=== PATIENT | female | born 1935 | race Two or more races ===

== ENCOUNTER → 2017-12-08 | Outpatient (CLI) | payer OTHER ==
[~2017-12-08] MED LIST: ASPI-231 PO; ASPI81CH43 PO; CEPH-37 PO; CLOP75TA28 PO; DIP25C PO; FOLI1TAB6 OR; GABA250S2 PO; GABA300C10 OR; HYDR-4683 GT; LEVO125T7 OR; LOSA50TA6 OR; METH2.5T3 OR; NITR0.4S31 SL; OMEG300C7 OR; PRED5PAK8 OR; PRENTAB40 OR; RIVA10TA PO; ROSU5TAB5 PO; SACC250C PO
== END | disposition home or self-care (01) ==
LOC: LAB 12:00
PROVIDERS: ATTEND Internal Medicine
DX: B26.89 Other mumps complications (principal); I10 Essential (primary) hypertension; E11.9 Type 2 diabetes mellitus without complications
CPT/HCPCS: 36415; 82565; 84520

== ENCOUNTER → 2017-12-11 | Outpatient (CLI) | payer OTHER ==
[2017-12-11 13:42] LABS: Basophils # (auto) 0.1 uL; Basophils % (auto) 1.2 % (0.0-2.0); Eosinophils # (auto) 0.2 uL; Eosinophils % (auto) 2.5 % (0.0-7.0); Hematocrit 37.9 % (36.0-46.0); Hemoglobin 12.6 g/dL (12.2-16.2); Lymphocytes # (auto) 1.9 uL; Lymphocytes % (auto) 25.9 % (10.0-50.0); Mean Corpuscular Hgb Conc. 33.3 g/dL (32.0-36.0); Mean Corpuscular Volume 99.2 fL (80.0-100.0); Monocytes # (auto) 0.5 uL; Monocytes % (auto) 7.1 % (0.0-12.0); Neutrophils # (auto) 4.7 uL; Neutrophils % (auto) 63.3 % (37.0-80.0); Nucleated Red Blood Cells % 0.1 %; Platelet Count (auto) 150 10^3/uL (140-450); Red Blood Cells 3.82 10^6/uL (4.0-5.20); Red Cell Distribution Width 14.7 % (11.8-14.3); White Blood Cell 7.4 10^3/uL (4.4-10.8)
[2017-12-11 14:36] LABS: Albumin 3.2 g/dL (3.4-5.0); BUN/Creatinine Ratio 23.6; Bilirubin, Total 0.4 mg/dL (0.2-1.0); Calcium 8.8 mg/dL (8.5-10.1); Total Protein 6.3 g/dL (6.4-8.2); Uric Acid 5.6 mg/dL (2.6-6.0)
== END | disposition home or self-care (01) ==
LOC: LAB 13:23
PROVIDERS: ATTEND Internal Medicine
DX: I12.9 Hypertensive chronic kidney disease with stage 1 through stage 4 chronic kidney disease, or unspecified chronic kidney disease (principal); E11.22 Type 2 diabetes mellitus with diabetic chronic kidney disease; N18.2 Chronic kidney disease, stage 2 (mild)
CPT/HCPCS: 36415; 80053; 83036; 83970; 84550; 85025

== ENCOUNTER → 2018-01-21 | Outpatient (CLI) | payer OTHER | END | disposition home or self-care (01) | LOC: LAB 11:37 | PROVIDERS: ATTEND Internal Medicine | DX: M54.2 Cervicalgia (principal); R51 Headache; E11.22 Type 2 diabetes mellitus with diabetic chronic kidney disease; I12.9 Hypertensive chronic kidney disease with stage 1 through stage 4 chronic kidney disease, or unspecified chronic kidney disease; N18.2 Chronic kidney disease, stage 2 (mild); E78.5 Hyperlipidemia, unspecified; K21.9 Gastro-esophageal reflux disease without esophagitis; Z79.899 Other long term (current) drug therapy; Z87.891 Personal history of nicotine dependence | CPT/HCPCS: 36415; 82565; 84520 ==

== ENCOUNTER → 2018-03-10 | Outpatient (CLI) | payer OTHER ==
[2018-03-10 14:54] LABS: Basophils # (auto) 0 uL; Basophils % (auto) 0.6 % (0.0-2.0); Eosinophils # (auto) 0.1 uL; Eosinophils % (auto) 0.8 % (0.0-7.0); Hematocrit 36.1 % (36.0-46.0); Hemoglobin 12.4 g/dL (12.2-16.2); Lymphocytes # (auto) 1.4 uL; Lymphocytes % (auto) 19.3 % (10.0-50.0); Mean Corpuscular Hgb Conc. 34.4 g/dL (32.0-36.0); Mean Corpuscular Volume 98.9 fL (80.0-100.0); Monocytes # (auto) 0.5 uL; Monocytes % (auto) 7.2 % (0.0-12.0); Neutrophils # (auto) 5.3 uL; Neutrophils % (auto) 72.1 % (37.0-80.0); Nucleated Red Blood Cells % 0.1 %; Platelet Count (auto) 161 10^3/uL (140-450); Red Blood Cells 3.65 10^6/uL (4.0-5.20); Red Cell Distribution Width 15.1 % (11.8-14.3); White Blood Cell 7.4 10^3/uL (4.4-10.8)
[2018-03-10 15:19] LABS: BUN/Creatinine Ratio 18.5; Bilirubin, Total 0.4 mg/dL (0.2-1.0); Calcium 8.8 mg/dL (8.5-10.1); Potassium 3.9 mmol/L (3.5-5.1); Total Protein 6.3 g/dL (6.4-8.2)
== END | disposition home or self-care (01) ==
LOC: LAB 14:13
PROVIDERS: ATTEND Internal Medicine
DX: E11.22 Type 2 diabetes mellitus with diabetic chronic kidney disease (principal); I13.0 Hypertensive heart and chronic kidney disease with heart failure and stage 1 through stage 4 chronic kidney disease, or unspecified chronic kidney disease; I50.9 Heart failure, unspecified; N18.2 Chronic kidney disease, stage 2 (mild); E03.9 Hypothyroidism, unspecified; E55.9 Vitamin D deficiency, unspecified; E78.2 Mixed hyperlipidemia; N39.0 Urinary tract infection, site not specified; K21.9 Gastro-esophageal reflux disease without esophagitis; E78.00 Pure hypercholesterolemia, unspecified
CPT/HCPCS: 36415; 80053; 83036; 85025

== ENCOUNTER 2018-03-23 04:29 | Emergency (ER) | payer OTHER ==
[~2018-03-23] VITALS: Ht 157.5 cm; Wt 72.1 kg
[2018-03-23 05:38] LABS: Eosinophils # (auto) 0.1 uL; Eosinophils % (auto) 0.8 % (0.0-7.0); Nucleated Red Blood Cells % 0.1 %
[2018-03-23 05:40] LABS: Basophils # (auto) 0.1 uL; Basophils % (auto) 0.7 % (0.0-2.0); Hematocrit 35.4 % (36.0-46.0); Hemoglobin 11.8 g/dL (12.2-16.2); Lymphocytes # (auto) 1.2 uL; Lymphocytes % (auto) 15.4 % (10.0-50.0); Mean Corpuscular Hemoglobin 33.9 pg (28.0-32.0); Mean Corpuscular Hgb Conc. 33.4 g/dL (32.0-36.0); Mean Corpuscular Volume 101.5 fL (80.0-100.0); Monocytes # (auto) 0.6 uL; Monocytes % (auto) 7.2 % (0.0-12.0); Neutrophils # (auto) 6.1 uL; Neutrophils % (auto) 75.9 % (37.0-80.0); Platelet Count (auto) 146 10^3/uL (140-450); Red Blood Cells 3.49 10^6/uL (4.0-5.20); Red Cell Distribution Width 15.4 % (11.8-14.3)
[2018-03-23 05:43] LABS: Alanine Aminotransferase 20 U/L (13-56); Albumin 2.8 g/dL (3.4-5.0); Anion Gap 7 (5-15); Aspartate Aminotransferase 13 U/L (15-37); BUN/Creatinine Ratio 26.9; Blood Urea Nitrogen 25 mg/dL (7-18); Calcium 8.4 mg/dL (8.5-10.1); Carbon Dioxide 28 mmol/L (21-32); Chloride 104 mmol/L (98-107); GFR African American 74 mL/min; GFR Non-African American 61 mL/min; Glucose 208 mg/dL (74-106); Sodium 139 mmol/L (136-145)
[2018-03-23 05:48] LABS: Alkaline Phosphatase 82 U/L (45-117); Bilirubin, Total 0.4 mg/dL (0.2-1.0); Total Protein 6.2 g/dL (6.4-8.2)
[2018-03-23 06:02] LABS: INR 0.93 (0.9-1.15); Partial Thromboplastin Time 23.1 sec (23.78-33.04)
[2018-03-23 06:07] VITALS: BP 114/56
[2018-03-23] MEDS ORDERED: cefTRIAXone 1GM/10ml IVPUSH 10 ML IV ONE ×2 (06:54→07:00)
[2018-03-23] MEDS ORDERED: AZITHROMYCIN 500MG/ 250ML 250 ML IV ONE (07:00)
[2018-03-23] MEDS ORDERED: AZITHROMYCIN 250 MG TAB PO ONE (07:15)
[2018-03-23] MEDS ORDERED: FUROSEMIDE 20 MG TAB PO ONE (07:30)
== END 2018-03-23 08:03 | disposition home or self-care (01) ==
LOC: EDBD 04:29 → ER 04:34
DX: J18.1 Lobar pneumonia, unspecified organism (principal); I11.0 Hypertensive heart disease with heart failure; I50.9 Heart failure, unspecified; E11.9 Type 2 diabetes mellitus without complications; M19.90 Unspecified osteoarthritis, unspecified site; Z79.899 Other long term (current) drug therapy
CPT/HCPCS: 36415; 70450; 71045; 80053; 80162; 83880; 84484; 85025; 85610; 85730; 93005; 96374

== ENCOUNTER 2018-04-30 14:03 | Inpatient (IN) | payer OTHER ==
[~2018-04-30] VITALS: Ht 154.9 cm; Wt 70.9 kg
[~2018-04-30 14:03] MED LIST changes: +ATOR20TA50 PO; +AZAT50TA6 PO; +CHOL20007 PO; +DIGO0.1262 PO; +ESCI5TAB PO; +FOLI1TAB51 GT; +FURO40TA PO; +GABA300C10 PO; +GLIM2TAB33 PO; +GLIM4TAB42 PO; +HYDR-392 PO; +LANS30CA63 PO; +LEVO125T7 PO; +LIDO5DIS7 EX; +LOSA50TA6 PO; +MAGN1TAB PO; +METO25TA62 PO; +NITR0.4D10 TD; +OMEG1CAP10 PO; +POTA-167 PO; +PRE5T PO; +PREN27TA7 OR; +RIVA15TA PO; +SITA100T7 PO; +TRAZ50TA2 PO
[2018-04-30] MEDS ORDERED: ACETAMINOPHEN 325 MG TAB PO ONE (15:00)
[2018-04-30 15:23] LABS: Hematocrit 35.8 % (36.0-46.0); Hemoglobin 12.2 g/dL (12.2-16.2); Mean Corpuscular Hemoglobin 33.7 pg (28.0-32.0); Mean Corpuscular Hgb Conc. 33.9 g/dL (32.0-36.0); Mean Corpuscular Volume 99.4 fL (80.0-100.0); Platelet Count (auto) 156 10^3/uL (140-450); Red Cell Distribution Width 15.1 % (11.8-14.3); White Blood Cell 9.9 10^3/uL (4.4-10.8)
[2018-04-30 15:29] LABS: Band Neutrophils % (manual) 0; Basophils % (manual) 0 (0.0-2.0); Blast Cells 0; Metamyelocytes % 0; Myelocytes % 0; Promyelocytes % 0; Reactive Lymphocytes 0
[2018-04-30 15:32] LABS: Alanine Aminotransferase 18 U/L (13-56); Albumin 2.9 g/dL (3.4-5.0); Alkaline Phosphatase 71 U/L (45-117); Anion Gap 7 (5-15); Aspartate Aminotransferase 16 U/L (15-37); BUN/Creatinine Ratio 15.1; Bilirubin, Total 0.5 mg/dL (0.2-1.0); Blood Alcohol < 3.0 mg/dL (0-5); Blood Urea Nitrogen 14 mg/dL (7-18); Calcium 8.5 mg/dL (8.5-10.1); Carbon Dioxide 29 mmol/L (21-32); Chloride 103 mmol/L (98-107); GFR African American 74 mL/min; GFR Non-African American 61 mL/min; Glucose 193 mg/dL (74-106); Magnesium 2.2 mg/dL (1.6-2.6); Sodium 139 mmol/L (136-145); Total Protein 6.3 g/dL (6.4-8.2)
[2018-04-30 16:24] LABS: Eosinophils % (manual) 2 (0-7); Lymphocytes % (manual) 15 (10.0-50.0); Monocytes % (manual) 8 (0-12)
[2018-04-30 17:25] LABS: Urine Bacteria NONE SEEN /hpf (None Seen); Urine Blood Negative /uL (Negative); Urine Mucus FEW (None Seen); Urine Specific Gravity 1.023 (1.001-1.035); Urine WBC 1 /hpf (0 - 5)
[2018-04-30] MEDS ORDERED: DEXTROSE (50%) 50ML SYRG IV PRN (18:30)
[2018-04-30] MEDS ORDERED: NITROGLYCERIN 0.4 MG SL TAB SL PRN (18:30)
[2018-04-30] MEDS ORDERED: PIPERACILLIN-TAZOB 3.375GM 100 ML IV ONE (18:30)
[2018-04-30] MEDS ORDERED: MORPHINE SULF INJ 2 MG/ML SYRINGE 1ML IV PRN (18:30)
[2018-04-30] MEDS ORDERED: TEMAZEPAM 15 MG CAP PO PRN (18:30)
[2018-04-30] MEDS ORDERED: VANCOMYCIN PER PHARMACY 0 MG IV SCH (18:30)
[2018-04-30] MEDS ORDERED: CLOPIDOGREL BISULFATE 75 MG TAB PO ONE (18:45)
[2018-04-30] MEDS ORDERED: ASPirin-EC 81 mg tab PO ONE (18:45)
[2018-04-30] MEDS ORDERED: PANTOPRAZOLE 40 MG TAB PO ONE (18:45)
[2018-04-30] MEDS ORDERED: RIVAROXABAN 15 MG TAB PO ONE (18:51)
[2018-04-30] MEDS ORDERED: CLOPIDOGREL BISULFATE 75 MG TAB ONE (18:53)
[2018-04-30] MEDS: VANCOMYCIN 1GM/250ML 250 ML IV SCH (20:21)
[2018-04-30 20:40] VITALS: BP 106/81
[2018-04-30 22:00] VITALS: BP 106/81
[2018-04-30] MEDS: ACCU-CHEK COMFORT CURVE STRIP VI SCH (22:00)
[2018-04-30] MEDS: GABAPENTIN 300 MG CAP PO SCH (22:33)
[2018-04-30] MEDS: ATORVASTATIN 20 MG TAB PO SCH (22:33)
[2018-04-30] MEDS: InsuLIN REG 1unit/0.01ml Soln (100units/ml) SC SCH (22:40)
[2018-04-30] MEDS: HYDROcodone-ACET 5/325MG TAB PO PRN (22:40)
[2018-05-01] MEDS: PIPERACILLIN-TAZOB 3.375GM 100 ML IV SCH ×5 (00:20→23:56)
[2018-05-01 04:47] VITALS: BP 113/69
[2018-05-01] MEDS: LEVOTHYROXINE SODIUM 50 MCG TAB PO SCH (06:06)
[2018-05-01] MEDS: HYDROcodone-ACET 5/325MG TAB PO PRN ×3 (06:06→19:33)
[2018-05-01] MEDS: ACCU-CHEK COMFORT CURVE STRIP VI SCH ×4 (06:06→21:32)
[2018-05-01] MEDS: InsuLIN REG 1unit/0.01ml Soln (100units/ml) SC SCH ×4 (06:29→21:31)
[2018-05-01 08:00] VITALS: BP 131/66
[2018-05-01] MEDS: predniSONE 5 MG TAB PO SCH (09:19)
[2018-05-01] MEDS: FOLIC ACID 1 MG TAB PO SCH (09:19)
[2018-05-01] MEDS: ASPirin-EC 81 mg tab PO SCH (09:20)
[2018-05-01] MEDS: GABAPENTIN 300 MG CAP PO SCH ×2 (09:20→21:31)
[2018-05-01] MEDS: CLOPIDOGREL BISULFATE 75 MG TAB PO SCH (09:20)
[2018-05-01] MEDS: PANTOPRAZOLE 40 MG TAB PO SCH (09:20)
[2018-05-01] MEDS: LOSARTAN POTASSIUM 50 MG TAB PO SCH (09:20)
[2018-05-01 12:00] VITALS: BP 122/69
[2018-05-01 16:00] VITALS: BP 132/98
[2018-05-01] MEDS: RIVAROXABAN 15 MG TAB PO SCH (18:11)
[2018-05-01] MEDS: VANCOMYCIN 1GM/250ML 250 ML IV SCH (20:42)
[2018-05-01 22:00] VITALS: BP 125/79
[2018-05-02 05:00] VITALS: BP 128/89
[2018-05-02] MEDS: PIPERACILLIN-TAZOB 3.375GM 100 ML IV SCH ×4 (05:32→23:32)
[2018-05-02] MEDS: InsuLIN REG 1unit/0.01ml Soln (100units/ml) SC SCH ×4 (06:42→21:26)
[2018-05-02] MEDS: LEVOTHYROXINE SODIUM 50 MCG TAB PO SCH (06:42)
[2018-05-02] MEDS: ACCU-CHEK COMFORT CURVE STRIP VI SCH ×4 (06:43→21:21)
[2018-05-02] MEDS: FOLIC ACID 1 MG TAB PO SCH (08:29)
[2018-05-02] MEDS: ASPirin-EC 81 mg tab PO SCH (08:30)
[2018-05-02] MEDS: LOSARTAN POTASSIUM 50 MG TAB PO SCH (08:30)
[2018-05-02] MEDS: predniSONE 5 MG TAB PO SCH (08:30)
[2018-05-02] MEDS: CLOPIDOGREL BISULFATE 75 MG TAB PO SCH (08:31)
[2018-05-02] MEDS: PANTOPRAZOLE 40 MG TAB PO SCH (08:31)
[2018-05-02] MEDS: GABAPENTIN 300 MG CAP PO SCH ×2 (08:31→21:16)
[2018-05-02] MEDS: ATORVASTATIN 20 MG TAB PO SCH (08:31)
[2018-05-02] MEDS: HYDROcodone-ACET 5/325MG TAB PO PRN ×3 (08:32→19:54)
[2018-05-02 09:00] VITALS: BP 144/87
[2018-05-02 13:00] VITALS: BP 132/73
[2018-05-02 17:00] VITALS: BP 131/72
[2018-05-02] MEDS: RIVAROXABAN 15 MG TAB PO SCH (17:40)
[2018-05-02] MEDS: VANCOMYCIN 1GM/250ML 250 ML IV SCH (19:37)
[2018-05-02 22:00] VITALS: BP 143/87
[2018-05-03] MEDS: LACTULOSE 20Gm/30ML SOLN PO PRN (03:13)
[2018-05-03] MEDS: HYDROcodone-ACET 5/325MG TAB PO PRN ×4 (03:14→19:02)
[2018-05-03 05:00] VITALS: BP 126/92
[2018-05-03] MEDS: PIPERACILLIN-TAZOB 3.375GM 100 ML IV SCH (05:30)
[2018-05-03] MEDS: InsuLIN REG 1unit/0.01ml Soln (100units/ml) SC SCH ×4 (06:02→21:17)
[2018-05-03] MEDS: ACCU-CHEK COMFORT CURVE STRIP VI SCH ×4 (06:03→21:17)
[2018-05-03 09:00] VITALS: BP 131/69
[2018-05-03] MEDS: CLOPIDOGREL BISULFATE 75 MG TAB PO SCH (09:27)
[2018-05-03] MEDS: GABAPENTIN 300 MG CAP PO SCH ×2 (09:27→20:25)
[2018-05-03] MEDS: PANTOPRAZOLE 40 MG TAB PO SCH ×2 (09:27→20:25)
[2018-05-03] MEDS: ASPirin-EC 81 mg tab PO SCH (09:28)
[2018-05-03] MEDS: predniSONE 5 MG TAB PO SCH (09:28)
[2018-05-03] MEDS: LOSARTAN POTASSIUM 50 MG TAB PO SCH (09:28)
[2018-05-03] MEDS: FOLIC ACID 1 MG TAB PO SCH (09:28)
[2018-05-03 10:46] LABS: Free T4 (Free Thyroxine) 1.44 ng/dL (0.89-1.76)
[2018-05-03 10:47] LABS: Free T3 1.86 pg/mL (2.3-4.2)
[2018-05-03 13:00] VITALS: BP 137/79
[2018-05-03] MEDS: cefTRIAXone 1GM/10ml IVPUSH 10 ML IV SCH (16:28)
[2018-05-03] MEDS: FLUCONAZOLE 100 MG TAB PO SCH (16:28)
[2018-05-03 17:00] VITALS: BP 136/82
[2018-05-03] MEDS: RIVAROXABAN 15 MG TAB PO SCH (18:03)
[2018-05-03] MEDS: VANCOMYCIN 1GM/250ML 250 ML IV SCH (20:18)
[2018-05-03 22:00] VITALS: BP 142/58
[2018-05-04] MEDS: HYDROcodone-ACET 5/325MG TAB PO PRN ×2 (00:25→05:52)
[2018-05-04 05:00] VITALS: BP 144/79
[2018-05-04] MEDS: LEVOTHYROXINE SODIUM 50 MCG TAB PO SCH (05:51)
[2018-05-04] MEDS: ACCU-CHEK COMFORT CURVE STRIP VI SCH ×4 (05:55→23:10)
[2018-05-04] MEDS: InsuLIN REG 1unit/0.01ml Soln (100units/ml) SC SCH ×4 (05:55→23:18)
[2018-05-04 06:07] LABS: Calcium 8.6 mg/dL (8.5-10.1); Potassium 3.6 mmol/L (3.5-5.1)
[2018-05-04 06:09] LABS: BUN/Creatinine Ratio 5.4
[2018-05-04] MEDS: HYDROmorphone HCL 2 MG/ML VL IV PRN ×6 (07:33→23:18)
[2018-05-04] MEDS: HYDROcodone-ACET 10/325MG TAB PO PRN ×4 (08:00→18:27)
[2018-05-04 09:00] VITALS: BP 148/78
[2018-05-04] MEDS ORDERED: D5W 5% 1,000 ML IV ONE (09:00)
[2018-05-04] MEDS ORDERED: MORPHINE SULF INJ 2 MG/ML SYRINGE 1ML IV PRN (09:00)
[2018-05-04] MEDS: GABAPENTIN 300 MG CAP PO SCH ×2 (10:00→23:17)
[2018-05-04] MEDS: ATORVASTATIN 20 MG TAB PO SCH (10:00)
[2018-05-04] MEDS: CLOPIDOGREL BISULFATE 75 MG TAB PO SCH (10:00)
[2018-05-04] MEDS: PANTOPRAZOLE 40 MG TAB PO SCH ×2 (10:00→23:17)
[2018-05-04] MEDS: FLUCONAZOLE 100 MG TAB PO SCH (10:00)
[2018-05-04] MEDS: ASPirin-EC 81 mg tab PO SCH (10:00)
[2018-05-04 11:54] LABS: INR 1.07 (0.9-1.15); Prothrombin Time 11.4 sec (9.27-12.13)
[2018-05-04 12:46] VITALS: BP 145/90
[2018-05-04] MEDS: FOLIC ACID 1 MG TAB PO SCH (14:43)
[2018-05-04] MEDS: predniSONE 5 MG TAB PO SCH (14:43)
[2018-05-04] MEDS: cefTRIAXone 1GM/10ml IVPUSH 10 ML IV SCH (14:43)
[2018-05-04] MEDS: LOSARTAN POTASSIUM 50 MG TAB PO SCH (14:45)
[2018-05-04] MEDS ORDERED: VANCOMYCIN 1GM/250ML 250 ML IV SCH (15:00)
[2018-05-04] MEDS: LORazepam 0.5 MG TAB PO PRN (16:20)
[2018-05-04 17:00] VITALS: BP 159/112
[2018-05-04] MEDS: AMPICILLIN INJ 1 GM in SODIUM CHL 0.9% 50 ML IV SCH (18:00)
[2018-05-04] MEDS ORDERED: HYDROmorphone HCL 2 MG/ML VL IV ONE (18:00)
[2018-05-04 22:00] VITALS: BP 144/113
[2018-05-05] MEDS: AMPICILLIN INJ 1 GM in SODIUM CHL 0.9% 50 ML IV SCH ×4 (00:30→17:54)
[2018-05-05] MEDS ORDERED: METOPROLOL TARTRATE 25 MG TAB PO ONE (02:30)
[2018-05-05] MEDS: HYDROcodone-ACET 10/325MG TAB PO PRN ×2 (02:46→16:07)
[2018-05-05 05:00] VITALS: BP 147/93
[2018-05-05] MEDS: ACCU-CHEK COMFORT CURVE STRIP VI SCH ×4 (06:52→22:00)
[2018-05-05] MEDS: InsuLIN REG 1unit/0.01ml Soln (100units/ml) SC SCH ×4 (06:52→22:00)
[2018-05-05] MEDS: LEVOTHYROXINE SODIUM 50 MCG TAB PO SCH (07:05)
[2018-05-05] MEDS: HYDROmorphone HCL 2 MG/ML VL IV PRN (07:05)
[2018-05-05 09:00] VITALS: BP 134/78
[2018-05-05] MEDS: FOLIC ACID 1 MG TAB PO SCH (10:14)
[2018-05-05] MEDS: predniSONE 5 MG TAB PO SCH (10:14)
[2018-05-05] MEDS: CLOPIDOGREL BISULFATE 75 MG TAB PO SCH (10:15)
[2018-05-05] MEDS: ASPirin-EC 81 mg tab PO SCH (10:15)
[2018-05-05] MEDS: PANTOPRAZOLE 40 MG TAB PO SCH ×2 (10:15→23:42)
[2018-05-05] MEDS: FLUCONAZOLE 100 MG TAB PO SCH (10:15)
[2018-05-05] MEDS: GABAPENTIN 300 MG CAP PO SCH ×2 (10:15→23:42)
[2018-05-05] MEDS: LOSARTAN POTASSIUM 50 MG TAB PO SCH (10:15)
[2018-05-05 11:00] LABS: BUN/Creatinine Ratio 4.2; Calcium 8.7 mg/dL (8.5-10.1); Potassium 3.9 mmol/L (3.5-5.1)
[2018-05-05 13:00] VITALS: BP 118/70
[2018-05-05 17:00] VITALS: BP 139/67
[2018-05-05 20:00] VITALS: BP 134/78
[2018-05-05 22:00] VITALS: BP 154/72
[2018-05-06] MEDS: AMPICILLIN INJ 1 GM in SODIUM CHL 0.9% 50 ML IV SCH ×5 (02:04→23:56)
[2018-05-06] MEDS: HYDROmorphone HCL 2 MG/ML VL IV PRN (02:31)
[2018-05-06 05:30] VITALS: BP 128/102
[2018-05-06] MEDS: LEVOTHYROXINE SODIUM 50 MCG TAB PO SCH (07:00)
[2018-05-06] MEDS: InsuLIN REG 1unit/0.01ml Soln (100units/ml) SC SCH ×4 (07:00→22:00)
[2018-05-06] MEDS: ACCU-CHEK COMFORT CURVE STRIP VI SCH ×4 (07:02→22:05)
[2018-05-06] MEDS: HYDROcodone-ACET 10/325MG TAB PO PRN ×3 (07:03→22:00)
[2018-05-06] MEDS ORDERED: LIDOCAINE 2%HCL (LOCAL ANESTH.) INJ 10ml MDV ONE (07:35)
[2018-05-06] MEDS ORDERED: IODIXANOL 320MG/ML 100ML BTL IV ONE ×2 (07:35→10:35)
[2018-05-06] MEDS: ASPirin-EC 81 mg tab PO SCH (10:00)
[2018-05-06] MEDS: PANTOPRAZOLE 40 MG TAB PO SCH ×2 (10:00→22:05)
[2018-05-06] MEDS: ATORVASTATIN 20 MG TAB PO SCH (10:00)
[2018-05-06] MEDS: CLOPIDOGREL BISULFATE 75 MG TAB PO SCH (10:00)
[2018-05-06] MEDS: FOLIC ACID 1 MG TAB PO SCH (10:00)
[2018-05-06] MEDS: LOSARTAN POTASSIUM 50 MG TAB PO SCH (10:00)
[2018-05-06] MEDS ORDERED: SODIUM CHL 0.9% 50 ML ONE (10:21)
[2018-05-06] MEDS ORDERED: ANGIOMAX 250 MG VIAL IV ONE (10:21)
[2018-05-06] MEDS ORDERED: fentaNYL CITRATE 100 MCG/2 ML VL ONE (10:21)
[2018-05-06] MEDS ORDERED: MIDAZOLAM HCL 1MG/1ML-2 ML VIAL ONE (10:21)
[2018-05-06] MEDS ORDERED: NITROGLYCERIN 5MG/ML 10ML VIAL IV ONE (10:50)
[2018-05-06] MEDS ORDERED: VERAPAMIL 2.5MG/ML INJ 2ML VIAL IV ONE (10:50)
[2018-05-06] MEDS ORDERED: CARVEDILOL 3.125 MG TAB PO SCH (12:30)
[2018-05-06] MEDS ORDERED: DIGOXIN (250MCG/ML) 2 ML AMPULE IV ONE ×2 (12:30→18:00)
[2018-05-06 12:45] VITALS: BP 124/80
[2018-05-06] MEDS: predniSONE 5 MG TAB PO SCH (12:50)
[2018-05-06] MEDS: FLUCONAZOLE 100 MG TAB PO SCH (12:50)
[2018-05-06] MEDS: GABAPENTIN 300 MG CAP PO SCH ×2 (12:50→22:04)
[2018-05-06 13:00] VITALS: BP_SYST 124; BP_SYST 135; BP_DIAS 54; BP_DIAS 80
[2018-05-06 17:00] VITALS: BP 96/55
[2018-05-06] MEDS ORDERED: SODIUM CHLORIDE 0.9% 500 ML IV ONE (17:45)
[2018-05-06] MEDS ORDERED: SODIUM CHLORIDE 0.9% 1,000 ML IV ONE (18:45)
[2018-05-06 18:49] LABS: Hemoglobin 9.7 g/dL (12.2-16.2)
[2018-05-06 22:00] VITALS: BP 115/60
[2018-05-06 23:24] LABS: Basophils # (auto) 0.1 uL; Basophils % (auto) 0.9 % (0.0-2.0); Eosinophils # (auto) 0.1 uL; Eosinophils % (auto) 0.7 % (0.0-7.0); Hematocrit 26.9 % (36.0-46.0); Hemoglobin 9.2 g/dL (12.2-16.2); Lymphocytes # (auto) 1.2 uL; Lymphocytes % (auto) 11.7 % (10.0-50.0); Mean Corpuscular Hemoglobin 33.9 pg (28.0-32.0); Mean Corpuscular Hgb Conc. 34.3 g/dL (32.0-36.0); Mean Corpuscular Volume 98.6 fL (80.0-100.0); Monocytes # (auto) 0.6 uL; Monocytes % (auto) 5.5 % (0.0-12.0); Neutrophils # (auto) 8.6 uL; Neutrophils % (auto) 81.2 % (37.0-80.0); Nucleated Red Blood Cells % 0.1 %; Platelet Count (auto) 156 10^3/uL (140-450); Red Blood Cells 2.72 10^6/uL (4.0-5.20); Red Cell Distribution Width 14.9 % (11.8-14.3); White Blood Cell 10.6 10^3/uL (4.4-10.8)
[2018-05-07 05:16] VITALS: BP 127/88
[2018-05-07] MEDS: LEVOTHYROXINE SODIUM 50 MCG TAB PO SCH (06:41)
[2018-05-07] MEDS: AMPICILLIN INJ 1 GM in SODIUM CHL 0.9% 50 ML IV SCH ×4 (06:41→23:59)
[2018-05-07] MEDS: InsuLIN REG 1unit/0.01ml Soln (100units/ml) SC SCH ×4 (06:42→22:00)
[2018-05-07] MEDS: HYDROcodone-ACET 10/325MG TAB PO PRN ×4 (06:42→22:36)
[2018-05-07] MEDS: ACCU-CHEK COMFORT CURVE STRIP VI SCH ×4 (06:42→22:00)
[2018-05-07 08:11] LABS: Basophils # (auto) 0.1 uL; Basophils % (auto) 0.5 % (0.0-2.0); Eosinophils # (auto) 0.2 uL; Eosinophils % (auto) 1.8 % (0.0-7.0); Hematocrit 28.3 % (36.0-46.0); Hemoglobin 9.5 g/dL (12.2-16.2); Lymphocytes % (auto) 17.8 % (10.0-50.0); Mean Corpuscular Hemoglobin 33.4 pg (28.0-32.0); Mean Corpuscular Hgb Conc. 33.5 g/dL (32.0-36.0); Mean Corpuscular Volume 99.6 fL (80.0-100.0); Monocytes # (auto) 0.7 uL; Monocytes % (auto) 6.7 % (0.0-12.0); Neutrophils # (auto) 8.1 uL; Neutrophils % (auto) 73.2 % (37.0-80.0); Nucleated Red Blood Cells % 0.1 %; Platelet Count (auto) 153 10^3/uL (140-450); Red Blood Cells 2.84 10^6/uL (4.0-5.20); Red Cell Distribution Width 14.9 % (11.8-14.3); White Blood Cell 11.1 10^3/uL (4.4-10.8)
[2018-05-07] MEDS: LOSARTAN POTASSIUM 50 MG TAB PO SCH (10:00)
[2018-05-07] MEDS: predniSONE 5 MG TAB PO SCH (10:01)
[2018-05-07] MEDS: PANTOPRAZOLE 40 MG TAB PO SCH ×2 (10:01→22:36)
[2018-05-07] MEDS: ACETAMINOPHEN 500 MG TAB PO PRN (10:01)
[2018-05-07] MEDS: GABAPENTIN 300 MG CAP PO SCH ×2 (10:01→22:36)
[2018-05-07] MEDS: FOLIC ACID 1 MG TAB PO SCH (10:01)
[2018-05-07] MEDS: FLUCONAZOLE 100 MG TAB PO SCH (10:01)
[2018-05-07 13:00] VITALS: BP 128/63
[2018-05-07] MEDS ORDERED: MORPHINE SULF INJ 2 MG/ML SYRINGE 1ML IV PRN (14:30)
[2018-05-07] MEDS ORDERED: HYDROmorphone HCL 2 MG/ML VL IV PRN (14:30)
[2018-05-07 17:00] VITALS: BP 140/75
[2018-05-07 20:00] VITALS: BP 108/67
[2018-05-07 22:00] VITALS: BP 108/67
[2018-05-08] VITALS (8 sets, daily range): BP systolic 129–154; BP diastolic 44–99
[2018-05-08] MEDS: HYDROcodone-ACET 10/325MG TAB PO PRN ×3 (02:54→20:20)
[2018-05-08] MEDS: AMPICILLIN INJ 1 GM in SODIUM CHL 0.9% 50 ML IV SCH ×3 (06:04→19:02)
[2018-05-08] MEDS: LEVOTHYROXINE SODIUM 50 MCG TAB PO SCH (06:05)
[2018-05-08] MEDS: InsuLIN REG 1unit/0.01ml Soln (100units/ml) SC SCH ×4 (06:12→21:50)
[2018-05-08] MEDS: ACCU-CHEK COMFORT CURVE STRIP VI SCH ×4 (06:13→21:49)
[2018-05-08] MEDS: ATORVASTATIN 20 MG TAB PO SCH (10:00)
[2018-05-08] MEDS: FOLIC ACID 1 MG TAB PO SCH (11:20)
[2018-05-08] MEDS: FLUCONAZOLE 100 MG TAB PO SCH (11:20)
[2018-05-08] MEDS: GABAPENTIN 300 MG CAP PO SCH ×2 (11:20→21:49)
[2018-05-08] MEDS: predniSONE 5 MG TAB PO SCH (11:20)
[2018-05-08] MEDS: LOSARTAN POTASSIUM 50 MG TAB PO SCH (11:21)
[2018-05-08] MEDS: PANTOPRAZOLE 40 MG TAB PO SCH ×2 (11:21→21:49)
[2018-05-08 13:14] LABS: Basophils # (auto) 0.1 uL; Basophils % (auto) 0.7 % (0.0-2.0); Eosinophils # (auto) 0.2 uL; Hematocrit 23.3 % (36.0-46.0); Hemoglobin 7.6 g/dL (12.2-16.2); Lymphocytes # (auto) 1.8 uL; Lymphocytes % (auto) 22.8 % (10.0-50.0); Mean Corpuscular Hemoglobin 33.5 pg (28.0-32.0); Mean Corpuscular Hgb Conc. 32.7 g/dL (32.0-36.0); Mean Corpuscular Volume 102.4 fL (80.0-100.0); Monocytes # (auto) 0.6 uL; Monocytes % (auto) 7.4 % (0.0-12.0); Neutrophils # (auto) 5.3 uL; Neutrophils % (auto) 66.1 % (37.0-80.0); Platelet Count (auto) 167 10^3/uL (140-450); Red Blood Cells 2.28 10^6/uL (4.0-5.20); Red Cell Distribution Width 15.1 % (11.8-14.3); White Blood Cell 8.1 10^3/uL (4.4-10.8)
[2018-05-08 13:20] LABS: BUN/Creatinine Ratio 9.8; Calcium 7.9 mg/dL (8.5-10.1); Potassium 3.5 mmol/L (3.5-5.1)
[2018-05-08] MEDS ORDERED: SODIUM CHLORIDE 0.9% 250 ML IV SCH (18:45)
[2018-05-09] VITALS (8 sets, daily range): BP systolic 107–142; BP diastolic 55–96
[2018-05-09] MEDS: LORazepam 0.5 MG TAB PO PRN (00:56)
[2018-05-09] MEDS ORDERED: diphenhdrAMINE HCL 25 MG CAP PO ONE ×2 (00:57→02:00)
[2018-05-09] MEDS: AMPICILLIN INJ 1 GM in SODIUM CHL 0.9% 50 ML IV SCH ×4 (01:48→18:27)
[2018-05-09 02:16] LABS: Basophils # (auto) 0.1 uL; Basophils % (auto) 1.2 % (0.0-2.0); Eosinophils # (auto) 0.1 uL; Eosinophils % (auto) 1.6 % (0.0-7.0); Hematocrit 29.4 % (36.0-46.0); Hemoglobin 9.9 g/dL (12.2-16.2); Lymphocytes # (auto) 1.9 uL; Lymphocytes % (auto) 23.2 % (10.0-50.0); Mean Corpuscular Hemoglobin 33.3 pg (28.0-32.0); Mean Corpuscular Hgb Conc. 33.8 g/dL (32.0-36.0); Mean Corpuscular Volume 98.4 fL (80.0-100.0); Monocytes # (auto) 0.7 uL; Monocytes % (auto) 8.6 % (0.0-12.0); Neutrophils # (auto) 5.3 uL; Neutrophils % (auto) 65.4 % (37.0-80.0); Platelet Count (auto) 163 10^3/uL (140-450); Red Blood Cells 2.98 10^6/uL (4.0-5.20); Red Cell Distribution Width 15.3 % (11.8-14.3); White Blood Cell 8.2 10^3/uL (4.4-10.8)
[2018-05-09] MEDS: ACCU-CHEK COMFORT CURVE STRIP VI SCH ×4 (05:59→22:38)
[2018-05-09] MEDS: InsuLIN REG 1unit/0.01ml Soln (100units/ml) SC SCH ×4 (05:59→22:39)
[2018-05-09] MEDS: LEVOTHYROXINE SODIUM 50 MCG TAB PO SCH (06:16)
[2018-05-09] MEDS ORDERED: ASPirin 81 mg TAB PO SCH (10:00)
[2018-05-09] MEDS: GABAPENTIN 300 MG CAP PO SCH ×2 (10:00→22:38)
[2018-05-09] MEDS: FOLIC ACID 1 MG TAB PO SCH (13:03)
[2018-05-09] MEDS: PANTOPRAZOLE 40 MG TAB PO SCH ×2 (13:03→22:38)
[2018-05-09] MEDS: FLUCONAZOLE 100 MG TAB PO SCH (13:03)
[2018-05-09] MEDS: predniSONE 5 MG TAB PO SCH (13:03)
[2018-05-09] MEDS: LOSARTAN POTASSIUM 50 MG TAB PO SCH (13:03)
[2018-05-09] MEDS: HYDROcodone-ACET 10/325MG TAB PO PRN ×2 (13:04→19:54)
[2018-05-10 00:10] VITALS: BP 140/69
[2018-05-10] MEDS: AMPICILLIN INJ 1 GM in SODIUM CHL 0.9% 50 ML IV SCH ×5 (02:03→23:17)
[2018-05-10] MEDS: HYDROcodone-ACET 10/325MG TAB PO PRN ×3 (02:04→20:05)
[2018-05-10 04:00] VITALS: BP 154/70
[2018-05-10 05:21] LABS: Basophils # (auto) 0 uL; Eosinophils # (auto) 0.2 uL; Eosinophils % (auto) 2.5 % (0.0-7.0); Hemoglobin 9.8 g/dL (12.2-16.2); Lymphocytes # (auto) 1.8 uL; Lymphocytes % (auto) 24.8 % (10.0-50.0); Nucleated Red Blood Cells % 0.1 %; White Blood Cell 7.1 10^3/uL (4.4-10.8)
[2018-05-10 05:24] LABS: Basophils % (auto) 0.7 % (0.0-2.0); Hematocrit 28.6 % (36.0-46.0); Mean Corpuscular Hemoglobin 33.7 pg (28.0-32.0); Mean Corpuscular Hgb Conc. 34.3 g/dL (32.0-36.0); Mean Corpuscular Volume 98.2 fL (80.0-100.0); Monocytes # (auto) 0.6 uL; Monocytes % (auto) 8.9 % (0.0-12.0); Neutrophils # (auto) 4.5 uL; Neutrophils % (auto) 63.1 % (37.0-80.0); Platelet Count (auto) 179 10^3/uL (140-450); Red Blood Cells 2.92 10^6/uL (4.0-5.20); Red Cell Distribution Width 15.3 % (11.8-14.3)
[2018-05-10 05:26] LABS: Albumin 2.6 g/dL (3.4-5.0); BUN/Creatinine Ratio 7.1; Bilirubin, Total 0.8 mg/dL (0.2-1.0); Calcium 8.4 mg/dL (8.5-10.1); Potassium 3.5 mmol/L (3.5-5.1); Total Protein 5.6 g/dL (6.4-8.2)
[2018-05-10] MEDS: ACETAMINOPHEN 500 MG TAB PO PRN (05:37)
[2018-05-10] MEDS: ACCU-CHEK COMFORT CURVE STRIP VI SCH ×4 (06:36→21:12)
[2018-05-10] MEDS: LEVOTHYROXINE SODIUM 50 MCG TAB PO SCH (06:36)
[2018-05-10] MEDS: InsuLIN REG 1unit/0.01ml Soln (100units/ml) SC SCH ×4 (06:43→21:13)
[2018-05-10] MEDS: GABAPENTIN 300 MG CAP PO SCH ×2 (08:27→21:12)
[2018-05-10] MEDS: FLUCONAZOLE 100 MG TAB PO SCH (08:27)
[2018-05-10] MEDS: predniSONE 5 MG TAB PO SCH (08:27)
[2018-05-10] MEDS: FOLIC ACID 1 MG TAB PO SCH (08:27)
[2018-05-10] MEDS: PANTOPRAZOLE 40 MG TAB PO SCH ×2 (08:27→21:12)
[2018-05-10] MEDS: LOSARTAN POTASSIUM 50 MG TAB PO SCH (08:40)
[2018-05-10] MEDS ORDERED: DIGOXIN (250MCG/ML) 2 ML AMPULE IV ONE (08:45)
[2018-05-10] MEDS ORDERED: DIGOXIN (250MCG/ML) 2 ML AMPULE ONE (08:50)
[2018-05-10] MEDS ORDERED: LORazepam 0.5 MG TAB PO PRN (09:00)
[2018-05-10] MEDS ORDERED: TEMAZEPAM 15 MG CAP PO PRN (09:00)
[2018-05-10] MEDS: ATORVASTATIN 20 MG TAB PO SCH (09:18)
[2018-05-10] MEDS ORDERED: METOPROLOL TARTRATE 50 MG TAB PO SCH (10:00)
[2018-05-10] MEDS ORDERED: METOPROLOL TARTRATE 25 MG TAB PO SCH (10:00)
[2018-05-10] MEDS ORDERED: METOPROLOL TARTRATE 25 MG TAB PO ONE (10:45)
[2018-05-10] MEDS: ASPirin 81 mg TAB PO SCH (10:52)
[2018-05-10 11:51] VITALS: BP 159/96
[2018-05-10] MEDS ORDERED: MORPHINE SULF INJ 2 MG/ML SYRINGE 1ML IV PRN (13:30)
[2018-05-10] MEDS ORDERED: HYDROmorphone HCL 2 MG/ML VL IV PRN (13:30)
[2018-05-10 15:53] VITALS: BP 148/94
[2018-05-10 19:50] VITALS: BP 167/93
[2018-05-10] MEDS: METOPROLOL TARTRATE 25 MG TAB PO SCH (21:12)
[2018-05-11] VITALS (7 sets, daily range): BP systolic 124–148; BP diastolic 70–89
[2018-05-11] MEDS: HYDROcodone-ACET 10/325MG TAB PO PRN ×3 (00:50→10:58)
[2018-05-11] MEDS: ACCU-CHEK COMFORT CURVE STRIP VI SCH ×4 (06:11→22:48)
[2018-05-11] MEDS: InsuLIN REG 1unit/0.01ml Soln (100units/ml) SC SCH ×4 (06:11→22:30)
[2018-05-11] MEDS: AMPICILLIN INJ 1 GM in SODIUM CHL 0.9% 50 ML IV SCH ×3 (06:11→19:50)
[2018-05-11] MEDS: LEVOTHYROXINE SODIUM 50 MCG TAB PO SCH (06:19)
[2018-05-11 06:46] LABS: Basophils # (auto) 0 uL; Basophils % (auto) 0.6 % (0.0-2.0); Eosinophils # (auto) 0.3 uL; Eosinophils % (auto) 3.5 % (0.0-7.0); Hematocrit 33.4 % (36.0-46.0); Hemoglobin 11.4 g/dL (12.2-16.2); Lymphocytes # (auto) 2.2 uL; Lymphocytes % (auto) 26.3 % (10.0-50.0); Mean Corpuscular Hemoglobin 33.8 pg (28.0-32.0); Mean Corpuscular Hgb Conc. 34.1 g/dL (32.0-36.0); Mean Corpuscular Volume 99.2 fL (80.0-100.0); Monocytes # (auto) 0.7 uL; Monocytes % (auto) 8.8 % (0.0-12.0); Neutrophils % (auto) 60.8 % (37.0-80.0); Nucleated Red Blood Cells % 0.2 %; Platelet Count (auto) 205 10^3/uL (140-450); Red Blood Cells 3.37 10^6/uL (4.0-5.20); Red Cell Distribution Width 15.2 % (11.8-14.3); White Blood Cell 8.3 10^3/uL (4.4-10.8)
[2018-05-11] MEDS ORDERED: HALOPERIDOL LACTATE 5 MG/ML INJ VIAL IM PRN (09:15)
[2018-05-11] MEDS: FLUCONAZOLE 100 MG TAB PO SCH (09:40)
[2018-05-11] MEDS: ASPirin 81 mg TAB PO SCH (09:40)
[2018-05-11] MEDS: FOLIC ACID 1 MG TAB PO SCH (09:40)
[2018-05-11] MEDS: GABAPENTIN 300 MG CAP PO SCH ×2 (09:41→22:47)
[2018-05-11] MEDS: predniSONE 5 MG TAB PO SCH (09:41)
[2018-05-11] MEDS: PANTOPRAZOLE 40 MG TAB PO SCH ×2 (09:42→22:47)
[2018-05-11] MEDS: LOSARTAN POTASSIUM 50 MG TAB PO SCH (09:44)
[2018-05-11] MEDS: METOPROLOL TARTRATE 25 MG TAB PO SCH ×2 (09:45→22:48)
[2018-05-11] MEDS: LACTULOSE 20Gm/30ML SOLN PO PRN (10:30)
[2018-05-11] MEDS: ASCORBIC ACID 500 MG TAB PO SCH ×2 (10:31→22:47)
[2018-05-11] MEDS: MULTIPLE VITAMINS W/ MINERALS TAB PO SCH (10:31)
[2018-05-11] MEDS: Glucerna Carbsteady SHAKE Stawberry 8oz PO SCH ×2 (12:00→18:19)
[2018-05-12] VITALS (7 sets, daily range): BP systolic 131–148; BP diastolic 66–107
[2018-05-12] MEDS: AMPICILLIN INJ 1 GM in SODIUM CHL 0.9% 50 ML IV SCH ×4 (00:13→17:40)
[2018-05-12] MEDS: LEVOTHYROXINE SODIUM 50 MCG TAB PO SCH (06:08)
[2018-05-12] MEDS: InsuLIN REG 1unit/0.01ml Soln (100units/ml) SC SCH ×4 (06:08→22:24)
[2018-05-12] MEDS: ACCU-CHEK COMFORT CURVE STRIP VI SCH ×4 (06:09→22:24)
[2018-05-12] MEDS: predniSONE 5 MG TAB PO SCH (09:39)
[2018-05-12] MEDS: GABAPENTIN 300 MG CAP PO SCH ×2 (09:39→22:07)
[2018-05-12] MEDS: METOPROLOL TARTRATE 25 MG TAB PO SCH ×2 (09:39→22:08)
[2018-05-12] MEDS: FOLIC ACID 1 MG TAB PO SCH (09:39)
[2018-05-12] MEDS: FLUCONAZOLE 100 MG TAB PO SCH (09:40)
[2018-05-12] MEDS: ATORVASTATIN 20 MG TAB PO SCH (09:40)
[2018-05-12] MEDS: PANTOPRAZOLE 40 MG TAB PO SCH ×2 (09:40→22:08)
[2018-05-12] MEDS: ASPirin 81 mg TAB PO SCH (09:40)
[2018-05-12] MEDS: MULTIPLE VITAMINS W/ MINERALS TAB PO SCH (09:41)
[2018-05-12] MEDS: LOSARTAN POTASSIUM 50 MG TAB PO SCH (09:41)
[2018-05-12] MEDS: ASCORBIC ACID 500 MG TAB PO SCH ×2 (09:41→22:07)
[2018-05-12] MEDS: Glucerna Carbsteady SHAKE Stawberry 8oz PO SCH ×3 (09:47→17:17)
[2018-05-12] MEDS: HYDROcodone-ACET 10/325MG TAB PO PRN ×2 (09:50→22:11)
[2018-05-12 11:09] LABS: Basophils # (auto) 0.1 uL; Basophils % (auto) 0.6 % (0.0-2.0); Eosinophils # (auto) 0.3 uL; Hematocrit 37.4 % (36.0-46.0); Hemoglobin 12.5 g/dL (12.2-16.2); Lymphocytes # (auto) 2.6 uL; Lymphocytes % (auto) 25.4 % (10.0-50.0); Mean Corpuscular Hemoglobin 33.3 pg (28.0-32.0); Mean Corpuscular Hgb Conc. 33.4 g/dL (32.0-36.0); Mean Corpuscular Volume 99.8 fL (80.0-100.0); Monocytes % (auto) 10.2 % (0.0-12.0); Neutrophils # (auto) 6.3 uL; Neutrophils % (auto) 60.8 % (37.0-80.0); Nucleated Red Blood Cells % 0.3 %; Platelet Count (auto) 252 10^3/uL (140-450); Red Blood Cells 3.75 10^6/uL (4.0-5.20); Red Cell Distribution Width 15.8 % (11.8-14.3); White Blood Cell 10.3 10^3/uL (4.4-10.8)
[2018-05-13] MEDS: AMPICILLIN INJ 1 GM in SODIUM CHL 0.9% 50 ML IV SCH ×2 (01:07→06:03)
[2018-05-13 05:10] VITALS: BP 85/56
[2018-05-13] MEDS: LEVOTHYROXINE SODIUM 50 MCG TAB PO SCH (06:08)
[2018-05-13] MEDS: InsuLIN REG 1unit/0.01ml Soln (100units/ml) SC SCH (06:16)
[2018-05-13] MEDS: ACCU-CHEK COMFORT CURVE STRIP VI SCH (06:17)
[2018-05-13 09:00] VITALS: BP 131/77
[2018-05-13] MEDS ORDERED: LEV50T PO (10:25)
[2018-05-13] MEDS ORDERED: ASPI325T4 PO (10:25)
[2018-05-13 10:31] VITALS: BP 131/77
[2018-05-13] MEDS: ASPirin 81 mg TAB PO SCH (11:12)
[2018-05-13] MEDS: Glucerna Carbsteady SHAKE Stawberry 8oz PO SCH (11:12)
[2018-05-13] MEDS: GABAPENTIN 300 MG CAP PO SCH (11:13)
[2018-05-13] MEDS: LOSARTAN POTASSIUM 50 MG TAB PO SCH (11:13)
[2018-05-13] MEDS: METOPROLOL TARTRATE 25 MG TAB PO SCH (11:13)
[2018-05-13] MEDS: FLUCONAZOLE 100 MG TAB PO SCH (11:13)
[2018-05-13] MEDS: FOLIC ACID 1 MG TAB PO SCH (11:14)
[2018-05-13] MEDS: predniSONE 5 MG TAB PO SCH (11:14)
[2018-05-13] MEDS: MULTIPLE VITAMINS W/ MINERALS TAB PO SCH (11:14)
[2018-05-13] MEDS: ASCORBIC ACID 500 MG TAB PO SCH (11:14)
[2018-05-13] MEDS: PANTOPRAZOLE 40 MG TAB PO SCH (11:14)
[2018-05-13] MEDS: HYDROcodone-ACET 10/325MG TAB PO PRN (11:15)
[2018-05-13 13:00] VITALS: BP 138/75
[2018-05-13] MEDS ORDERED: MET25T PO (13:58)
== END 2018-05-13 14:00 | disposition home health service (06) | DRG 270 ==
LOC: ER 14:03 → TELE 14:04 → TELE-EAST 19:50 → TELE-CENTR 05-05 20:16 → DOU IN ICU 05-08 17:25 → TELE-CENTR 05-11 21:07
PROVIDERS: ADMIT Internal Medicine; ATTEND Internal Medicine
PROC: 047L3Z1 Dilation of Left Femoral Artery using Drug-Coated Balloon, Percutaneous Approach (ICD-10-PCS; principal; 2018-05-06)
PROC: 04CL3ZZ Extirpation of Matter from Left Femoral Artery, Percutaneous Approach (ICD-10-PCS; 2018-05-06)
PROC: B41G1ZZ Fluoroscopy of Left Lower Extremity Arteries using Low Osmolar Contrast (ICD-10-PCS; 2018-05-06)
PROC: B41F1ZZ Fluoroscopy of Right Lower Extremity Arteries using Low Osmolar Contrast (ICD-10-PCS; 2018-05-06)
PROC: 30233N1 Transfusion of Nonautologous Red Blood Cells into Peripheral Vein, Percutaneous Approach (ICD-10-PCS; 2018-05-08)
DX: I70.201 Unspecified atherosclerosis of native arteries of extremities, right leg (principal); G93.40 Encephalopathy, unspecified; I50.33 Acute on chronic diastolic (congestive) heart failure; G93.41 Metabolic encephalopathy; L03.115 Cellulitis of right lower limb; E87.0 Hyperosmolality and hypernatremia; D62 Acute posthemorrhagic anemia; G45.9 Transient cerebral ischemic attack, unspecified; E11.51 Type 2 diabetes mellitus with diabetic peripheral angiopathy without gangrene; E11.65 Type 2 diabetes mellitus with hyperglycemia; E78.5 Hyperlipidemia, unspecified; S30.1XXA Contusion of abdominal wall, initial encounter; E89.0 Postprocedural hypothyroidism; F03.90 Unspecified dementia, unspecified severity, without behavioral disturbance, psychotic disturbance, mood disturbance, and anxiety; F17.200 Nicotine dependence, unspecified, uncomplicated; E11.42 Type 2 diabetes mellitus with diabetic polyneuropathy; G89.4 Chronic pain syndrome; S70.12XA Contusion of left thigh, initial encounter; W19.XXXA Unspecified fall, initial encounter; I11.0 Hypertensive heart disease with heart failure; I25.10 Atherosclerotic heart disease of native coronary artery without angina pectoris; I48.91 Unspecified atrial fibrillation; M10.9 Gout, unspecified; I67.2 Cerebral atherosclerosis; J44.9 Chronic obstructive pulmonary disease, unspecified; M06.9 Rheumatoid arthritis, unspecified; M19.90 Unspecified osteoarthritis, unspecified site; Z79.899 Other long term (current) drug therapy; Z82.49 Family history of ischemic heart disease and other diseases of the circulatory system; Z83.3 Family history of diabetes mellitus; Z86.73 Personal history of transient ischemic attack (TIA), and cerebral infarction without residual deficits; Z95.5 Presence of coronary angioplasty implant and graft; Z79.82 Long term (current) use of aspirin; Z87.440 Personal history of urinary (tract) infections
CPT/HCPCS: 36415; 37224; 37225; 51702; 70450; 71045; 72125; 74176; 75716; 80048; 80053; 80202; 80320; 81001; 82550; 82565; 82962; 83036; 83605; 83735; 83880; 84439; 84443; 84481; 84484; 85007; 85014; 85018; 85025; 85027; 85610; 85652; 86850; 86900; 86901; 86920; 87040; 87077; 87186; 87205; 93005; 93306; 93926; 93970; 95819; 96374; 97116; 97163; 97530; 99152; A6257; J0696; J1815; J2001; J2250; J2543; J3490; J7060; Q9967

== ENCOUNTER 2018-06-13 13:49 | Inpatient (IN) | payer OTHER ==
[~2018-06-13] VITALS: Ht 152.4 cm; Wt 67.7 kg
[~2018-06-13 13:49] MED LIST changes: -ASPI-231 PO; +ASPI325T4 PO; -ASPI81CH43 PO; -CEPH-37 PO; -CLOP75TA28 PO; -DIP25C PO; -GABA300C10 OR; +LEV50T PO; -LEVO125T7 OR; +LOSA-46 OR; +LOSA-46 PO; -LOSA50TA6 OR; -LOSA50TA6 PO; +MET25T PO; -RIVA10TA PO
[2018-06-13] MEDS ORDERED: SODIUM CHLORIDE 0.9% 500 ML IVB ONE (14:14)
[2018-06-13 15:12] LABS: Basophils # (auto) 0.1 uL; Basophils % (auto) 0.8 % (0.0-2.0); Eosinophils # (auto) 0.3 uL; Eosinophils % (auto) 2.5 % (0.0-7.0); Hematocrit 43.4 % (36.0-46.0); Hemoglobin 14.6 g/dL (12.2-16.2); Lymphocytes # (auto) 1.9 uL; Lymphocytes % (auto) 17.8 % (10.0-50.0); Mean Corpuscular Hemoglobin 33.2 pg (28.0-32.0); Mean Corpuscular Hgb Conc. 33.7 g/dL (32.0-36.0); Mean Corpuscular Volume 98.6 fL (80.0-100.0); Monocytes # (auto) 0.9 uL; Monocytes % (auto) 8.2 % (0.0-12.0); Neutrophils # (auto) 7.5 uL; Neutrophils % (auto) 70.7 % (37.0-80.0); Nucleated Red Blood Cells % 0.1 %; Platelet Count (auto) 214 10^3/uL (140-450); Red Cell Distribution Width 15.1 % (11.8-14.3); White Blood Cell 10.6 10^3/uL (4.4-10.8)
[2018-06-13 15:34] LABS: Alanine Aminotransferase 14 U/L (13-56); Albumin 2.9 g/dL (3.4-5.0); Alkaline Phosphatase 96 U/L (45-117); Anion Gap 8 (5-15); Aspartate Aminotransferase 14 U/L (15-37); Bilirubin, Total 0.9 mg/dL (0.2-1.0); Blood Alcohol < 3.0 mg/dL (0-5); Blood Urea Nitrogen 12 mg/dL (7-18); Calcium 9.1 mg/dL (8.5-10.1); Carbon Dioxide 28 mmol/L (21-32); Chloride 101 mmol/L (98-107); GFR African American 95 mL/min; GFR Non-African American 78 mL/min; Glucose 172 mg/dL (74-106); Magnesium 2.3 mg/dL (1.6-2.6); Potassium 3.5 mmol/L (3.5-5.1); Sodium 137 mmol/L (136-145); Total Protein 6.8 g/dL (6.4-8.2)
[2018-06-13 15:35] LABS: INR 0.94 (0.9-1.15); Partial Thromboplastin Time 26.1 sec (23.78-33.04); Prothrombin Time 10.1 sec (9.27-12.13)
[2018-06-13 16:36] LABS: Urine Bacteria MANY /hpf (None Seen); Urine Blood 1+ /uL (Negative); Urine Mucus FEW (None Seen); Urine Specific Gravity 1.024 (1.001-1.035); Urine WBC 54 /hpf (0 - 5)
[2018-06-13 16:43] LABS: Amphetamine Screen, Urine NEGATIVE (NEGATIVE); Barbiturate Scree,Urine NEGATIVE (NEGATIVE); Benzodiazephine Screen, Urine NEGATIVE (NEGATIVE); Cannabinoid Screen, Urine POSITIVE (NEGATIVE); Cocaine Screen, Urine NEGATIVE (NEGATIVE); Opiate Scree,Urine POSITIVE (NEGATIVE); Phencyclidine Screen, Urine NEGATIVE (NEGATIVE)
[2018-06-13] MEDS ORDERED: cefTRIAXone 1GM/10ml IVPUSH 10 ML IV ONE (17:30)
[2018-06-13] MEDS ORDERED: IOHEXOL 350 MG/ML 100ML IJ ONE (18:13)
[2018-06-13] MEDS ORDERED: DEXTROSE (50%) 50ML SYRG IV PRN (18:15)
[2018-06-13] MEDS ORDERED: TEMAZEPAM 15 MG CAP PO PRN (18:15)
[2018-06-13] MEDS ORDERED: NITROGLYCERIN 0.4 MG SL TAB SL PRN (18:15)
[2018-06-13] MEDS ORDERED: LACTULOSE 20Gm/30ML SOLN PO PRN (18:15)
[2018-06-13] MEDS ORDERED: LORazepam 0.5 MG TAB PO PRN (18:15)
[2018-06-13] MEDS ORDERED: MORPHINE SULFATE 4 MG/ML SYR/VIAL IV PRN (18:15)
[2018-06-13] MEDS ORDERED: PROMETHAZINE HCL 25 MG/ML 1ML IV PRN (18:15)
[2018-06-13] MEDS: SODIUM CHLORIDE 0.9% 1,000 ML IV SCH (18:24)
[2018-06-13] MEDS ORDERED: PIPERACILLIN-TAZOB 3.375GM 100 ML IV ONE (18:30)
[2018-06-13] MEDS ORDERED: methylPREDNISolone SOD SUCC 40 MG/ML VL IV ONE (18:30)
[2018-06-13] MEDS: PIPERACILLIN-TAZOB 3.375GM 100 ML IV SCH (18:56)
[2018-06-13] MEDS: RIVAROXABAN 15 MG TAB PO SCH (19:15)
[2018-06-13 22:00] VITALS: BP 119/66
[2018-06-13] MEDS ORDERED: methylPREDNISolone SOD SUCC 40 MG/ML VL IV SCH (22:00)
[2018-06-13] MEDS: METOPROLOL TARTRATE 50 MG TAB PO SCH (22:00)
[2018-06-13] MEDS ORDERED: ATORVASTATIN 20 MG TAB PO SCH (22:00)
[2018-06-13] MEDS ORDERED: LANSOPRAZOLE 30 MG PO SCH (22:00)
[2018-06-13] MEDS: GLIMEPIRIDE 2 MG TAB PO SCH (22:00)
[2018-06-13] MEDS: GABAPENTIN 300 MG CAP PO SCH (22:00)
[2018-06-13] MEDS: ATORVASTATIN 20 MG TAB PO SCH (22:00)
[2018-06-13] MEDS: traZODone HCL 50 MG TAB PO SCH (22:00)
[2018-06-13] MEDS: OMEGA ACID ETHYL ESTERS PO SCH (22:00)
[2018-06-13] MEDS: methylPREDNISolone SOD SUCC 40 MG/ML VL IV SCH (22:25)
[2018-06-13] MEDS: ACCU-CHEK COMFORT CURVE STRIP VI SCH (22:28)
[2018-06-13] MEDS: MORPHINE SULFATE 4 MG/ML SYR/VIAL IV PRN (22:28)
[2018-06-13] MEDS: InsuLIN REG 1unit/0.01ml Soln (100units/ml) SC SCH (22:42)
[2018-06-13 23:21] VITALS: BP 119/66
[2018-06-14] MEDS: PIPERACILLIN-TAZOB 3.375GM 100 ML IV SCH ×4 (00:46→19:49)
[2018-06-14 05:00] VITALS: BP 141/77
[2018-06-14] MEDS: MORPHINE SULFATE 4 MG/ML SYR/VIAL IV PRN (05:28)
[2018-06-14] MEDS: SODIUM CHLORIDE 0.9% 1,000 ML IV SCH ×2 (05:56→19:49)
[2018-06-14] MEDS: GLIMEPIRIDE 2 MG TAB PO SCH ×2 (06:06→22:25)
[2018-06-14] MEDS: ACCU-CHEK COMFORT CURVE STRIP VI SCH ×4 (06:06→22:14)
[2018-06-14] MEDS: InsuLIN REG 1unit/0.01ml Soln (100units/ml) SC SCH ×4 (06:07→22:26)
[2018-06-14] MEDS ORDERED: LEVOTHYROXINE SODIUM 25 MCG TAB PO SCH (07:00)
[2018-06-14] MEDS: HYDROmorphone HCL 2 MG/ML VL IV PRN ×4 (07:28→15:15)
[2018-06-14 09:00] VITALS: BP 121/64
[2018-06-14] MEDS ORDERED: cefTRIAXone 1GM/10ml IVPUSH 10 ML IV SCH (09:00)
[2018-06-14] MEDS ORDERED: ASPirin 81 mg TAB PO SCH (10:00)
[2018-06-14] MEDS: LEVOTHYROXINE SODIUM 100 MCG TAB PO SCH (10:00)
[2018-06-14] MEDS: ASPirin 325 MG TAB PO SCH (10:00)
[2018-06-14] MEDS ORDERED: predniSONE 5 MG TAB PO SCH (10:00)
[2018-06-14] MEDS: METOPROLOL TARTRATE 50 MG TAB PO SCH ×2 (10:00→22:14)
[2018-06-14] MEDS: DIGOXIN 0.125 MG TAB PO SCH (10:00)
[2018-06-14] MEDS: OMEGA ACID ETHYL ESTERS PO SCH ×2 (10:00→22:00)
[2018-06-14] MEDS: GABAPENTIN 300 MG CAP PO SCH ×2 (10:00→22:00)
[2018-06-14] MEDS: FOLIC ACID 1 MG TAB PO SCH (10:00)
[2018-06-14] MEDS ORDERED: ENOXAPARIN SOD 40 MG/0.4 ML SYRINGE SC SCH (10:00)
[2018-06-14] MEDS: PANTOPRAZOLE 40 MG TAB PO SCH (10:00)
[2018-06-14] MEDS: CHOLECALCIFEROL (VITD3) 1,000 UNIT TAB PO SCH (10:00)
[2018-06-14] MEDS ORDERED: PATIENTS OWN MEDICATION (Folic Acid 1 MG) OR SCH (10:00)
[2018-06-14] MEDS ORDERED: azaTHIOprine 50 MG TAB PO SCH (10:00)
[2018-06-14] MEDS: methylPREDNISolone SOD SUCC 40 MG/ML VL IV SCH ×2 (10:32→22:13)
[2018-06-14 12:47] VITALS: BP 129/71
[2018-06-14 16:09] LABS: Folate (Folic Acid) 21.74 ng/mL (5.38-24)
[2018-06-14 17:00] VITALS: BP 124/69
[2018-06-14] MEDS: RIVAROXABAN 15 MG TAB PO SCH (18:00)
[2018-06-14 22:00] VITALS: BP 160/81
[2018-06-14] MEDS: ATORVASTATIN 20 MG TAB PO SCH (22:00)
[2018-06-14] MEDS: traZODone HCL 50 MG TAB PO SCH (22:27)
[2018-06-14 23:22] LABS: Alcohol, Urine < 3.0 mg/dL (0-5); Amphetamine Screen, Urine NEGATIVE (NEGATIVE); Barbiturate Scree,Urine NEGATIVE (NEGATIVE); Benzodiazephine Screen, Urine NEGATIVE (NEGATIVE); Cannabinoid Screen, Urine NEGATIVE (NEGATIVE); Cocaine Screen, Urine NEGATIVE (NEGATIVE); Opiate Scree,Urine POSITIVE (NEGATIVE); Phencyclidine Screen, Urine NEGATIVE (NEGATIVE)
[2018-06-15] MEDS: PIPERACILLIN-TAZOB 3.375GM 100 ML IV SCH ×4 (00:39→18:25)
[2018-06-15 05:00] VITALS: BP_SYST 141; BP_SYST 149; BP_DIAS 65
[2018-06-15] MEDS: ACCU-CHEK COMFORT CURVE STRIP VI SCH ×4 (06:05→22:47)
[2018-06-15] MEDS: InsuLIN REG 1unit/0.01ml Soln (100units/ml) SC SCH ×4 (06:25→23:01)
[2018-06-15] MEDS: GLIMEPIRIDE 2 MG TAB PO SCH ×2 (06:29→23:01)
[2018-06-15] MEDS: LEVOTHYROXINE SODIUM 100 MCG TAB PO SCH (06:29)
[2018-06-15] MEDS: SODIUM CHLORIDE 0.9% 1,000 ML IV SCH ×2 (07:42→22:46)
[2018-06-15] MEDS: HYDROmorphone HCL 2 MG/ML VL IV PRN ×6 (07:46→22:49)
[2018-06-15 08:00] VITALS: BP 162/66
[2018-06-15] MEDS: HYDROcodone-ACET 5/325MG TAB PO PRN (09:25)
[2018-06-15] MEDS: CHOLECALCIFEROL (VITD3) 1,000 UNIT TAB PO SCH (10:00)
[2018-06-15] MEDS: OMEGA ACID ETHYL ESTERS PO SCH ×2 (10:00→22:00)
[2018-06-15] MEDS: methylPREDNISolone SOD SUCC 40 MG/ML VL IV SCH (10:03)
[2018-06-15] MEDS: METOPROLOL TARTRATE 50 MG TAB PO SCH ×2 (10:03→22:47)
[2018-06-15] MEDS: GABAPENTIN 300 MG CAP PO SCH ×2 (10:03→22:00)
[2018-06-15] MEDS: ASPirin 325 MG TAB PO SCH (10:04)
[2018-06-15] MEDS: DIGOXIN 0.125 MG TAB PO SCH (10:04)
[2018-06-15] MEDS: PANTOPRAZOLE 40 MG TAB PO SCH (10:04)
[2018-06-15] MEDS: FOLIC ACID 1 MG TAB PO SCH (12:35)
[2018-06-15 13:00] VITALS: BP 124/64
[2018-06-15 13:02] LABS: Basophils # (auto) 0 uL; Basophils % (auto) 0.2 % (0.0-2.0); Eosinophils # (auto) 0 uL; Hematocrit 41.4 % (36.0-46.0); Hemoglobin 13.9 g/dL (12.2-16.2); Lymphocytes # (auto) 0.7 uL; Lymphocytes % (auto) 4.5 % (10.0-50.0); Mean Corpuscular Hemoglobin 32.6 pg (28.0-32.0); Mean Corpuscular Hgb Conc. 33.6 g/dL (32.0-36.0); Monocytes # (auto) 0.8 uL; Monocytes % (auto) 5.1 % (0.0-12.0); Neutrophils # (auto) 13.5 uL; Neutrophils % (auto) 90.2 % (37.0-80.0); Platelet Count (auto) 198 10^3/uL (140-450); Red Blood Cells 4.27 10^6/uL (4.0-5.20); Red Cell Distribution Width 14.5 % (11.8-14.3)
[2018-06-15 16:00] VITALS: BP 155/82
[2018-06-15 22:00] VITALS: BP 148/79
[2018-06-15] MEDS: ATORVASTATIN 20 MG TAB PO SCH (22:00)
[2018-06-15] MEDS: traZODone HCL 50 MG TAB PO SCH (23:01)
[2018-06-16] MEDS: PIPERACILLIN-TAZOB 3.375GM 100 ML IV SCH ×4 (00:29→19:08)
[2018-06-16 05:00] VITALS: BP 155/76
[2018-06-16] MEDS: GLIMEPIRIDE 2 MG TAB PO SCH ×2 (06:13→22:21)
[2018-06-16] MEDS: LEVOTHYROXINE SODIUM 100 MCG TAB PO SCH (06:14)
[2018-06-16] MEDS: InsuLIN REG 1unit/0.01ml Soln (100units/ml) SC SCH ×4 (06:14→22:00)
[2018-06-16] MEDS: ACCU-CHEK COMFORT CURVE STRIP VI SCH ×4 (06:14→22:22)
[2018-06-16] MEDS: HYDROmorphone HCL 2 MG/ML VL IV PRN ×5 (07:35→18:00)
[2018-06-16] MEDS: SODIUM CHLORIDE 0.9% 1,000 ML IV SCH ×2 (08:42→21:12)
[2018-06-16 09:00] VITALS: BP 149/72
[2018-06-16] MEDS: OMEGA ACID ETHYL ESTERS PO SCH ×2 (10:00→22:00)
[2018-06-16] MEDS: HYDROcodone-ACET 5/325MG TAB PO PRN ×3 (10:31→19:43)
[2018-06-16] MEDS: GABAPENTIN 300 MG CAP PO SCH ×2 (10:31→22:22)
[2018-06-16] MEDS: DIGOXIN 0.125 MG TAB PO SCH (10:32)
[2018-06-16] MEDS: METOPROLOL TARTRATE 50 MG TAB PO SCH ×2 (10:32→22:21)
[2018-06-16] MEDS: CHOLECALCIFEROL (VITD3) 1,000 UNIT TAB PO SCH (10:33)
[2018-06-16] MEDS: FOLIC ACID 1 MG TAB PO SCH (10:33)
[2018-06-16] MEDS: PANTOPRAZOLE 40 MG TAB PO SCH (10:34)
[2018-06-16] MEDS: predniSONE 5 MG TAB PO SCH (10:34)
[2018-06-16 13:00] VITALS: BP 143/70
[2018-06-16 17:00] VITALS: BP 143/63
[2018-06-16 21:30] VITALS: BP 124/91
[2018-06-16] MEDS: ATORVASTATIN 20 MG TAB PO SCH (22:21)
[2018-06-16] MEDS: traZODone HCL 50 MG TAB PO SCH (22:21)
[2018-06-16] MEDS: PRAMIPEXOLE DIHYDROCHLORIDE MO 0.25 MG TAB PO SCH (22:21)
[2018-06-17] MEDS: PIPERACILLIN-TAZOB 3.375GM 100 ML IV SCH ×2 (00:49→04:35)
[2018-06-17] MEDS: HYDROcodone-ACET 5/325MG TAB PO PRN (03:44)
[2018-06-17] MEDS: GLIMEPIRIDE 2 MG TAB PO SCH ×2 (04:35→19:54)
[2018-06-17] MEDS: InsuLIN REG 1unit/0.01ml Soln (100units/ml) SC SCH ×4 (04:36→21:17)
[2018-06-17] MEDS: LEVOTHYROXINE SODIUM 100 MCG TAB PO SCH (04:36)
[2018-06-17] MEDS: ACCU-CHEK COMFORT CURVE STRIP VI SCH ×4 (04:37→21:15)
[2018-06-17 05:00] VITALS: BP 150/81
[2018-06-17] MEDS: HYDROmorphone HCL 2 MG/ML VL IV PRN (05:07)
[2018-06-17 09:00] VITALS: BP 112/58
[2018-06-17] MEDS: OMEGA ACID ETHYL ESTERS PO SCH ×2 (10:00→21:16)
[2018-06-17] MEDS: predniSONE 5 MG TAB PO SCH (10:07)
[2018-06-17] MEDS: PANTOPRAZOLE 40 MG TAB PO SCH (10:07)
[2018-06-17] MEDS: FOLIC ACID 1 MG TAB PO SCH (10:07)
[2018-06-17] MEDS: DIGOXIN 0.125 MG TAB PO SCH (10:07)
[2018-06-17] MEDS: CHOLECALCIFEROL (VITD3) 1,000 UNIT TAB PO SCH (10:08)
[2018-06-17] MEDS: METOPROLOL TARTRATE 50 MG TAB PO SCH ×2 (10:08→21:16)
[2018-06-17] MEDS: GABAPENTIN 300 MG CAP PO SCH ×2 (10:08→19:53)
[2018-06-17] MEDS ORDERED: HYDROcodone-ACET 5/325MG TAB PO PRN (10:30)
[2018-06-17 13:00] VITALS: BP 120/55
[2018-06-17] MEDS: cefTRIAXone 1GM/10ml IVPUSH 10 ML IV SCH (13:53)
[2018-06-17] MEDS: RIVAROXABAN 15 MG TAB PO SCH (17:14)
[2018-06-17] MEDS: Glucerna Carbsteady SHAKE Vanilla 8oz PO SCH (18:51)
[2018-06-17] MEDS: PRAMIPEXOLE DIHYDROCHLORIDE MO 0.25 MG TAB PO SCH (19:54)
[2018-06-17] MEDS: traZODone HCL 50 MG TAB PO SCH (19:55)
[2018-06-17] MEDS: HYDROcodone-ACET 7.5/325MG TAB PO PRN (19:55)
[2018-06-17] MEDS: ATORVASTATIN 20 MG TAB PO SCH (19:55)
[2018-06-17] MEDS: ACETAMINOPHEN 500 MG TAB PO PRN (19:55)
[2018-06-17 22:00] VITALS: BP 131/62
[2018-06-18 05:00] VITALS: BP 144/69
[2018-06-18] MEDS: LEVOTHYROXINE SODIUM 100 MCG TAB PO SCH (06:37)
[2018-06-18] MEDS: InsuLIN REG 1unit/0.01ml Soln (100units/ml) SC SCH ×3 (06:37→17:00)
[2018-06-18] MEDS: GLIMEPIRIDE 2 MG TAB PO SCH (06:37)
[2018-06-18] MEDS: ACCU-CHEK COMFORT CURVE STRIP VI SCH ×3 (06:37→17:00)
[2018-06-18] MEDS: HYDROcodone-ACET 7.5/325MG TAB PO PRN (06:38)
[2018-06-18 07:12] LABS: Basophils # (auto) 0 uL; Basophils % (auto) 0.1 % (0.0-2.0); Eosinophils # (auto) 0.3 uL; Eosinophils % (auto) 3.9 % (0.0-7.0); Hematocrit 35.8 % (36.0-46.0); Hemoglobin 12.5 g/dL (12.2-16.2); Lymphocytes # (auto) 2.5 uL; Lymphocytes % (auto) 32.1 % (10.0-50.0); Mean Corpuscular Hemoglobin 33.5 pg (28.0-32.0); Mean Corpuscular Hgb Conc. 34.9 g/dL (32.0-36.0); Monocytes # (auto) 0.5 uL; Monocytes % (auto) 6.8 % (0.0-12.0); Neutrophils # (auto) 4.4 uL; Neutrophils % (auto) 57.1 % (37.0-80.0); Platelet Count (auto) 158 10^3/uL (140-450); Red Blood Cells 3.73 10^6/uL (4.0-5.20); Red Cell Distribution Width 14.4 % (11.8-14.3); White Blood Cell 7.8 10^3/uL (4.4-10.8)
[2018-06-18 07:37] LABS: BUN/Creatinine Ratio 22.2; Calcium 7.6 mg/dL (8.5-10.1)
[2018-06-18 07:53] LABS: Potassium 2.5 mmol/L (3.5-5.1)
[2018-06-18] MEDS ORDERED: POTASSIUM CHL 20 Meq TABLET PO ONE ×2 (08:15→12:30)
[2018-06-18 08:29] VITALS: BP 140/70
[2018-06-18] MEDS: FOLIC ACID 1 MG TAB PO SCH (09:32)
[2018-06-18] MEDS: OMEGA ACID ETHYL ESTERS PO SCH (09:32)
[2018-06-18] MEDS: DIGOXIN 0.125 MG TAB PO SCH (09:32)
[2018-06-18] MEDS: GABAPENTIN 300 MG CAP PO SCH (09:33)
[2018-06-18] MEDS: POTASSIUM CHL 20MEQ/100ML 100 ML IV SCH ×2 (09:33→09:40)
[2018-06-18] MEDS: PANTOPRAZOLE 40 MG TAB PO SCH (09:38)
[2018-06-18] MEDS: predniSONE 5 MG TAB PO SCH (09:38)
[2018-06-18] MEDS: CHOLECALCIFEROL (VITD3) 1,000 UNIT TAB PO SCH (09:38)
[2018-06-18] MEDS: ACETAMINOPHEN 500 MG TAB PO PRN (09:38)
[2018-06-18] MEDS: METOPROLOL TARTRATE 50 MG TAB PO SCH (09:39)
[2018-06-18] MEDS: cefTRIAXone 1GM/10ml IVPUSH 10 ML IV SCH (09:39)
[2018-06-18] MEDS: Glucerna Carbsteady SHAKE Vanilla 8oz PO SCH ×2 (09:40→18:00)
[2018-06-18] MEDS ORDERED: HYDROcodone-ACET 7.5/325MG TAB PO PRN (10:45)
[2018-06-18] MEDS ORDERED: PRA25T PO (10:55)
[2018-06-18] MEDS ORDERED: LEVO-28 PO (10:55)
[2018-06-18] MEDS: MAGNESIUM SULFATE 1GM/100ML 100 ML IV SCH ×2 (14:08→16:10)
[2018-06-18] MEDS: RIVAROXABAN 15 MG TAB PO SCH (18:00)
== END 2018-06-18 18:45 | disposition hospice, home (50) | DRG 871 ==
LOC: EDUNIT# 13:49 → EDBD 13:49 → ER 13:51 → TELE 13:52 → TELE-EAST 21:20 → EAST 06-16 11:58
PROVIDERS: ADMIT Internal Medicine; ATTEND Internal Medicine
DX: A41.9 Sepsis, unspecified organism (principal); G93.41 Metabolic encephalopathy; I50.33 Acute on chronic diastolic (congestive) heart failure; N39.0 Urinary tract infection, site not specified; B96.4 Proteus (mirabilis) (morganii) as the cause of diseases classified elsewhere; B96.5 Pseudomonas (aeruginosa) (mallei) (pseudomallei) as the cause of diseases classified elsewhere; E03.9 Hypothyroidism, unspecified; E11.51 Type 2 diabetes mellitus with diabetic peripheral angiopathy without gangrene; E11.65 Type 2 diabetes mellitus with hyperglycemia; E78.5 Hyperlipidemia, unspecified; E87.6 Hypokalemia; F03.90 Unspecified dementia, unspecified severity, without behavioral disturbance, psychotic disturbance, mood disturbance, and anxiety; G25.81 Restless legs syndrome; I11.0 Hypertensive heart disease with heart failure; I48.91 Unspecified atrial fibrillation; S91.104A Unspecified open wound of right lesser toe(s) without damage to nail, initial encounter; X58.XXXA Exposure to other specified factors, initial encounter; I70.201 Unspecified atherosclerosis of native arteries of extremities, right leg; I71.4 Abdominal aortic aneurysm, without rupture; M06.9 Rheumatoid arthritis, unspecified; M19.90 Unspecified osteoarthritis, unspecified site; R32 Unspecified urinary incontinence; Z66 Do not resuscitate; Z82.49 Family history of ischemic heart disease and other diseases of the circulatory system; Z83.3 Family history of diabetes mellitus; Z79.899 Other long term (current) drug therapy; Z79.82 Long term (current) use of aspirin; Y93.89 Activity, other specified; Y92.89 Other specified places as the place of occurrence of the external cause
CPT/HCPCS: 36415; 70450; 71045; 71275; 73110; 80048; 80053; 80162; 80307; 80320; 81001; 82746; 82962; 83036; 83605; 83735; 84132; 84443; 84484; 85025; 85379; 85610; 85730; 87040; 87086; 87088; 87186; 92610; 96361; 96374; 96375; 97530; A6257; J0696; J1815; J2543; J3480

== ENCOUNTER 2018-06-21 21:05 | Inpatient (IN) | payer OTHER ==
[~2018-06-21] VITALS: Ht 152.4 cm; Wt 69.0 kg
[~2018-06-21 21:05] MED LIST changes: -ASPI325T4 PO; -AZAT50TA6 PO; -FOLI1TAB51 GT; -FURO40TA PO; -GLIM2TAB33 PO; -HYDR-4683 GT; -LANS30CA63 PO; +LEVO-28 PO; -LEVO125T7 PO; -LIDO5DIS7 EX; -LOSA-46 PO; -MAGN1TAB PO; -METO25TA62 PO; -NITR0.4S31 SL; -OMEG1CAP10 PO; -OMEG300C7 OR; -POTA-167 PO; +PRA25T PO; -PRED5PAK8 OR; -PREN27TA7 OR; -PRENTAB40 OR; -ROSU5TAB5 PO; -SACC250C PO; -SITA100T7 PO
[2018-06-21] MEDS ORDERED: IBUPROFEN 600 MG TAB PO PRN (22:45)
[2018-06-21] MEDS ORDERED: ONDANSETRON HCL 4 MG/2 ML VIAL IV PRN (22:45)
[2018-06-21] MEDS ORDERED: GABAPENTIN 300 MG CAP PO ONE (22:45)
[2018-06-21 22:53] VITALS: BP 140/76
[2018-06-21] MEDS ORDERED: DOCUSATE SOD 100 MG CAP PO PRN (23:00)
[2018-06-22] MEDS: GABAPENTIN 300 MG CAP PO SCH ×3 (06:31→22:12)
[2018-06-22 07:48] LABS: Basophils # (auto) 0 uL; Basophils % (auto) 0.5 % (0.0-2.0); Eosinophils # (auto) 0.3 uL; Eosinophils % (auto) 3.5 % (0.0-7.0); Hematocrit 36.1 % (36.0-46.0); Hemoglobin 12.2 g/dL (12.2-16.2); Lymphocytes # (auto) 1.3 uL; Lymphocytes % (auto) 14.8 % (10.0-50.0); Mean Corpuscular Hemoglobin 32.9 pg (28.0-32.0); Mean Corpuscular Hgb Conc. 33.8 g/dL (32.0-36.0); Mean Corpuscular Volume 97.3 fL (80.0-100.0); Monocytes # (auto) 0.5 uL; Monocytes % (auto) 5.8 % (0.0-12.0); Neutrophils # (auto) 6.4 uL; Neutrophils % (auto) 75.4 % (37.0-80.0); Platelet Count (auto) 204 10^3/uL (140-450); Red Blood Cells 3.71 10^6/uL (4.0-5.20); Red Cell Distribution Width 14.8 % (11.8-14.3); White Blood Cell 8.6 10^3/uL (4.4-10.8)
[2018-06-22 08:08] LABS: Calcium 8.3 mg/dL (8.5-10.1); Potassium 3.5 mmol/L (3.5-5.1)
[2018-06-22 08:44] VITALS: BP 143/85
[2018-06-22] MEDS: predniSONE 5 MG TAB PO SCH (09:50)
[2018-06-22] MEDS: LEVOFLOXACIN 500 MG TAB PO SCH (09:50)
[2018-06-22] MEDS: HYDROcodone-ACET 5/325MG TAB PO PRN ×2 (09:51→14:33)
[2018-06-22] MEDS: DIGOXIN 0.125 MG TAB PO SCH (09:55)
[2018-06-22] MEDS ORDERED: DEXTROSE (50%) 50ML SYRG IV PRN (12:45)
[2018-06-22 13:00] VITALS: BP 143/103
[2018-06-22] MEDS: METOPROLOL TARTRATE 25 MG TAB PO SCH ×2 (14:28→22:14)
[2018-06-22 17:00] VITALS: BP 129/75
[2018-06-22] MEDS: InsuLIN REG 1unit/0.01ml Soln (100units/ml) SC SCH ×2 (18:11→22:00)
[2018-06-22] MEDS: RIVAROXABAN 15 MG TAB PO SCH (18:11)
[2018-06-22] MEDS: ACCU-CHEK COMFORT CURVE STRIP VI SCH ×2 (18:12→22:17)
[2018-06-22 19:38] LABS: Urine Bacteria NONE SEEN /hpf (None Seen); Urine Blood 3+ /uL (Negative); Urine Budding Yeast MODERATE /hpf (None Seen); Urine Mucus MODERATE (None Seen); Urine Specific Gravity 1.015 (1.001-1.035); Urine WBC 96 /hpf (0 - 5); Urine WBC Clumps PRESENT /hpf (None Seen)
[2018-06-22] MEDS: ATORVASTATIN 20 MG TAB PO SCH (22:11)
[2018-06-22] MEDS: traZODone HCL 50 MG TAB PO SCH (22:12)
[2018-06-22 23:12] VITALS: BP 124/74
[2018-06-23] MEDS: HYDROcodone-ACET 5/325MG TAB PO PRN ×3 (01:51→20:17)
[2018-06-23 05:04] VITALS: BP 147/78
[2018-06-23] MEDS: GABAPENTIN 300 MG CAP PO SCH ×3 (06:17→22:13)
[2018-06-23] MEDS: ACCU-CHEK COMFORT CURVE STRIP VI SCH ×4 (06:20→22:17)
[2018-06-23] MEDS: InsuLIN REG 1unit/0.01ml Soln (100units/ml) SC SCH ×4 (06:20→22:17)
[2018-06-23 10:02] VITALS: BP 140/71
[2018-06-23] MEDS: predniSONE 5 MG TAB PO SCH (10:32)
[2018-06-23] MEDS: METOPROLOL TARTRATE 25 MG TAB PO SCH ×3 (10:33→22:00)
[2018-06-23] MEDS: LEVOFLOXACIN 500 MG TAB PO SCH (10:33)
[2018-06-23] MEDS: DIGOXIN 0.125 MG TAB PO SCH (10:34)
[2018-06-23 13:15] VITALS: BP 140/78
[2018-06-23 13:21] LABS: Basophils # (auto) 0 uL; Basophils % (auto) 0.6 % (0.0-2.0); Eosinophils # (auto) 0.3 uL; Eosinophils % (auto) 3.6 % (0.0-7.0); Hemoglobin 12.6 g/dL (12.2-16.2); Lymphocytes # (auto) 1.1 uL; Lymphocytes % (auto) 15.8 % (10.0-50.0); Mean Corpuscular Hgb Conc. 34.1 g/dL (32.0-36.0); Mean Corpuscular Volume 96.9 fL (80.0-100.0); Monocytes # (auto) 0.6 uL; Monocytes % (auto) 8.4 % (0.0-12.0); Neutrophils # (auto) 5.2 uL; Neutrophils % (auto) 71.6 % (37.0-80.0); Nucleated Red Blood Cells % 0.1 %; Platelet Count (auto) 232 10^3/uL (140-450); Red Blood Cells 3.82 10^6/uL (4.0-5.20); Red Cell Distribution Width 14.5 % (11.8-14.3); White Blood Cell 7.2 10^3/uL (4.4-10.8)
[2018-06-23 13:36] LABS: Calcium 8.2 mg/dL (8.5-10.1); Potassium 3.5 mmol/L (3.5-5.1)
[2018-06-23 13:38] LABS: BUN/Creatinine Ratio 9.8
[2018-06-23] MEDS ORDERED: LEVO50TA7 PO (16:09)
[2018-06-23] MEDS ORDERED: METO-169 PO (16:19)
[2018-06-23 17:23] VITALS: BP 151/98
[2018-06-23] MEDS: RIVAROXABAN 15 MG TAB PO SCH (17:34)
[2018-06-23 22:05] VITALS: BP 125/75
[2018-06-23] MEDS: traZODone HCL 50 MG TAB PO SCH (22:12)
[2018-06-23] MEDS: ATORVASTATIN 20 MG TAB PO SCH (22:12)
[2018-06-24 05:13] VITALS: BP_SYST 111; BP_SYST 156; BP_DIAS 81; BP_DIAS 92
[2018-06-24] MEDS: GABAPENTIN 300 MG CAP PO SCH ×3 (06:00→22:23)
[2018-06-24] MEDS: InsuLIN REG 1unit/0.01ml Soln (100units/ml) SC SCH ×4 (06:01→22:00)
[2018-06-24] MEDS: ACCU-CHEK COMFORT CURVE STRIP VI SCH ×4 (06:01→22:24)
[2018-06-24] MEDS ORDERED: PNEUMOCOCCAL VACC POLYS 25 MCG/0.5 ML VIAL IM ONE (07:30)
[2018-06-24] MEDS ORDERED: INFLUENZA QUAD 2018-2019 0.5 ML SYRG IM ONE (07:30)
[2018-06-24 09:00] VITALS: BP 145/84
[2018-06-24] MEDS: predniSONE 5 MG TAB PO SCH (10:17)
[2018-06-24] MEDS: DIGOXIN 0.125 MG TAB PO SCH (10:17)
[2018-06-24] MEDS: LEVOFLOXACIN 500 MG TAB PO SCH (10:18)
[2018-06-24] MEDS: METOPROLOL TARTRATE 25 MG TAB PO SCH ×2 (10:18→22:23)
[2018-06-24] MEDS: HYDROcodone-ACET 5/325MG TAB PO PRN ×2 (11:31→22:44)
[2018-06-24 13:00] VITALS: BP 126/75
[2018-06-24 17:00] VITALS: BP 122/91
[2018-06-24] MEDS: RIVAROXABAN 15 MG TAB PO SCH (17:35)
[2018-06-24 21:51] VITALS: BP 114/86
[2018-06-24] MEDS: ATORVASTATIN 20 MG TAB PO SCH (22:22)
[2018-06-24] MEDS: traZODone HCL 50 MG TAB PO SCH (22:22)
[2018-06-25] MEDS: HYDROcodone-ACET 5/325MG TAB PO PRN (05:15)
[2018-06-25 05:19] VITALS: BP 159/104
[2018-06-25] MEDS: ACCU-CHEK COMFORT CURVE STRIP VI SCH ×2 (06:38→11:35)
[2018-06-25] MEDS: InsuLIN REG 1unit/0.01ml Soln (100units/ml) SC SCH ×2 (06:38→11:30)
[2018-06-25] MEDS: GABAPENTIN 300 MG CAP PO SCH ×2 (06:38→14:00)
[2018-06-25 09:00] VITALS: BP 144/92
[2018-06-25] MEDS: predniSONE 5 MG TAB PO SCH (10:01)
[2018-06-25] MEDS: LEVOFLOXACIN 500 MG TAB PO SCH (10:02)
[2018-06-25] MEDS: DIGOXIN 0.125 MG TAB PO SCH (10:02)
[2018-06-25] MEDS: METOPROLOL TARTRATE 25 MG TAB PO SCH (10:03)
== END 2018-06-25 16:50 | disposition hospice, home (50) | DRG 300 ==
LOC: WEST WING 21:05
PROVIDERS: ADMIT Nurse Practitioner Family; ATTEND Internal Medicine
DX: I82.621 Acute embolism and thrombosis of deep veins of right upper extremity (principal); L03.113 Cellulitis of right upper limb; N39.0 Urinary tract infection, site not specified; D68.69 Other thrombophilia; I80.8 Phlebitis and thrombophlebitis of other sites; I25.10 Atherosclerotic heart disease of native coronary artery without angina pectoris; I25.2 Old myocardial infarction; E11.9 Type 2 diabetes mellitus without complications; I48.91 Unspecified atrial fibrillation; M19.90 Unspecified osteoarthritis, unspecified site; I50.9 Heart failure, unspecified; I11.0 Hypertensive heart disease with heart failure; E78.5 Hyperlipidemia, unspecified; E03.9 Hypothyroidism, unspecified; E66.3 Overweight; I71.4 Abdominal aortic aneurysm, without rupture; M06.9 Rheumatoid arthritis, unspecified; Z51.5 Encounter for palliative care; Z79.84 Long term (current) use of oral hypoglycemic drugs; Z79.01 Long term (current) use of anticoagulants; Z79.82 Long term (current) use of aspirin; Z79.899 Other long term (current) drug therapy; Z82.49 Family history of ischemic heart disease and other diseases of the circulatory system
CPT/HCPCS: 36415; 71045; 80048; 81001; 82962; 85025; 87081; 87493; 93971; J1815

== ENCOUNTER 2018-06-28 17:47 | Inpatient (IN) | payer OTHER ==
[~2018-06-28] VITALS: Ht 157.5 cm; Wt 68.5 kg
[~2018-06-28 17:47] MED LIST changes: -GABA250S2 PO; -LEV50T PO; +LEVO50TA7 PO; -MET25T PO; +METO-169 PO; -PRA25T PO
[2018-06-28] MEDS ORDERED: HYDROcodone-ACET 7.5/325MG TAB PO ONE (20:00)
[2018-06-28 20:32] LABS: Basophils # (auto) 0.1 uL; Eosinophils # (auto) 0.2 uL; Eosinophils % (auto) 2.6 % (0.0-7.0); Hematocrit 36.4 % (36.0-46.0); Hemoglobin 11.8 g/dL (12.2-16.2); Lymphocytes # (auto) 1.1 uL; Lymphocytes % (auto) 12.6 % (10.0-50.0); Mean Corpuscular Hemoglobin 31.6 pg (28.0-32.0); Mean Corpuscular Hgb Conc. 32.3 g/dL (32.0-36.0); Mean Corpuscular Volume 97.8 fL (80.0-100.0); Monocytes # (auto) 0.5 uL; Monocytes % (auto) 6.3 % (0.0-12.0); Neutrophils # (auto) 6.5 uL; Neutrophils % (auto) 77.5 % (37.0-80.0); Nucleated Red Blood Cells % 0.1 %; Platelet Count (auto) 268 10^3/uL (140-450); Red Blood Cells 3.72 10^6/uL (4.0-5.20); Red Cell Distribution Width 15.2 % (11.8-14.3); White Blood Cell 8.4 10^3/uL (4.4-10.8)
[2018-06-28 20:47] LABS: Albumin 2.6 g/dL (3.4-5.0); Calcium 8.4 mg/dL (8.5-10.1); Potassium 4.2 mmol/L (3.5-5.1)
[2018-06-28 20:50] LABS: BUN/Creatinine Ratio 11.7
[2018-06-28 20:52] LABS: Bilirubin, Total 0.3 mg/dL (0.2-1.0)
[2018-06-28] MEDS ORDERED: ONDANSETRON HCL 4 MG/2 ML VIAL IV PRN (23:00)
[2018-06-28] MEDS ORDERED: ACETAMINOPHEN 500 MG TAB PO PRN (23:00)
[2018-06-29] VITALS (7 sets, daily range): BP systolic 96–146; BP diastolic 68–80
[2018-06-29] MEDS: HYDROcodone-ACET 5/325MG TAB PO PRN ×3 (02:58→13:58)
[2018-06-29] MEDS: GABAPENTIN 300 MG CAP PO SCH ×3 (06:00→21:34)
[2018-06-29 06:18] LABS: Basophils # (auto) 0 uL; Basophils % (auto) 0.6 % (0.0-2.0); Eosinophils # (auto) 0.1 uL; Eosinophils % (auto) 1.4 % (0.0-7.0); Hematocrit 36.1 % (36.0-46.0); Hemoglobin 12.1 g/dL (12.2-16.2); Lymphocytes # (auto) 1.3 uL; Lymphocytes % (auto) 19.5 % (10.0-50.0); Mean Corpuscular Hemoglobin 32.9 pg (28.0-32.0); Mean Corpuscular Hgb Conc. 33.5 g/dL (32.0-36.0); Mean Corpuscular Volume 98.2 fL (80.0-100.0); Monocytes # (auto) 0.5 uL; Monocytes % (auto) 7.1 % (0.0-12.0); Neutrophils # (auto) 4.8 uL; Neutrophils % (auto) 71.4 % (37.0-80.0); Nucleated Red Blood Cells % 0.1 %; Platelet Count (auto) 255 10^3/uL (140-450); Red Blood Cells 3.68 10^6/uL (4.0-5.20); Red Cell Distribution Width 14.8 % (11.8-14.3); White Blood Cell 6.7 10^3/uL (4.4-10.8)
[2018-06-29] MEDS: LEVOTHYROXINE SODIUM 50 MCG TAB PO SCH (06:26)
[2018-06-29 06:35] LABS: Potassium 4.2 mmol/L (3.5-5.1)
[2018-06-29 06:51] LABS: BUN/Creatinine Ratio 14.9; Calcium 8.6 mg/dL (8.5-10.1)
[2018-06-29] MEDS ORDERED: LEVOTHYROXINE SODIUM 50 MCG TAB PO SCH (07:00)
[2018-06-29] MEDS ORDERED: METOPROLOL SUCCINATE XL 50 MG TAB PO SCH (10:00)
[2018-06-29] MEDS: predniSONE 5 MG TAB PO SCH (10:38)
[2018-06-29] MEDS: metFORMIN HYDROCHLORIDE 500 MG TAB PO SCH (10:38)
[2018-06-29] MEDS ORDERED: DEXTROSE (50%) 50ML SYRG IV PRN (12:15)
[2018-06-29] MEDS: ACCU-CHEK COMFORT CURVE STRIP VI SCH ×2 (18:06→21:34)
[2018-06-29] MEDS: InsuLIN REG 1unit/0.01ml Soln (100units/ml) SC SCH ×2 (18:07→21:34)
[2018-06-29] MEDS: RIVAROXABAN 15 MG TAB PO SCH (18:33)
[2018-06-29] MEDS ORDERED: traZODone HCL 50 MG TAB PO SCH (22:00)
[2018-06-30 05:00] VITALS: BP 118/73
[2018-06-30] MEDS: LEVOTHYROXINE SODIUM 50 MCG TAB PO SCH (06:31)
[2018-06-30] MEDS: GABAPENTIN 300 MG CAP PO SCH ×2 (06:31→14:00)
[2018-06-30] MEDS: InsuLIN REG 1unit/0.01ml Soln (100units/ml) SC SCH ×3 (06:34→17:00)
[2018-06-30] MEDS: ACCU-CHEK COMFORT CURVE STRIP VI SCH ×3 (06:34→17:00)
[2018-06-30] MEDS: HYDROcodone-ACET 5/325MG TAB PO PRN ×3 (08:05→18:31)
[2018-06-30 08:26] VITALS: BP 145/85
[2018-06-30] MEDS ORDERED: METOPROLOL SUCCINATE XL 50 MG TAB PO SCH (10:00)
[2018-06-30] MEDS: predniSONE 5 MG TAB PO SCH (11:12)
[2018-06-30] MEDS: metFORMIN HYDROCHLORIDE 500 MG TAB PO SCH (11:13)
[2018-06-30] MEDS ORDERED: KETOROLAC TROMETH 30 MG/ML 1ML VIAL IV ONE (12:00)
[2018-06-30 13:26] VITALS: BP 118/68
[2018-06-30 17:05] VITALS: BP 119/76
[2018-06-30] MEDS: RIVAROXABAN 15 MG TAB PO SCH (18:23)
== END 2018-06-30 20:00 | disposition home or self-care (01) | DRG 300 ==
LOC: EDUNIT# 17:47 → EDBD 17:47 → ER 17:51 → OVERFLOW 17:52 → TELE-WESTW 23:49 → WEST WING 23:53
PROVIDERS: ADMIT Nurse Practitioner Family; ATTEND Internal Medicine
DX: I82.621 Acute embolism and thrombosis of deep veins of right upper extremity (principal); D68.69 Other thrombophilia; I48.91 Unspecified atrial fibrillation; M19.90 Unspecified osteoarthritis, unspecified site; M06.9 Rheumatoid arthritis, unspecified; I25.10 Atherosclerotic heart disease of native coronary artery without angina pectoris; I11.0 Hypertensive heart disease with heart failure; K21.9 Gastro-esophageal reflux disease without esophagitis; I71.4 Abdominal aortic aneurysm, without rupture; I50.9 Heart failure, unspecified; E11.9 Type 2 diabetes mellitus without complications; E03.9 Hypothyroidism, unspecified; Z87.440 Personal history of urinary (tract) infections; Z79.84 Long term (current) use of oral hypoglycemic drugs; Z79.899 Other long term (current) drug therapy; Z95.5 Presence of coronary angioplasty implant and graft; Z83.3 Family history of diabetes mellitus; Z82.49 Family history of ischemic heart disease and other diseases of the circulatory system; Z79.01 Long term (current) use of anticoagulants
CPT/HCPCS: 36415; 80048; 80053; 82962; 85025; 87081; 97116; 97530; J1815